=== PATIENT | male | born 1950 | race Two or more races ===

== ENCOUNTER 2024-10-13 01:27 | Emergency (ER) | payer MEDICARE, MEDICAID, SELFPAY ==
[2024-10-13 01:29] VITALS: BMI 24.7
[2024-10-13 01:45] VITALS: BP 175/81; PULSE 71; RESP 19; TEMP 36.4; O2SAT 95
--- NOTE | 2024-10-13 02:02 | PD.EDSKIN ---
ED Skin Abcess FB-RME/HPI General Chief complaint: Skin/Abscess/Foreign Body Stated complaint: RASH Time Seen by Provider: 10/13/24 01:51 Arrival date/time: 10/13/24 01:27 74M with history of HTN and DM Presents to ED with 2 days of itchy and painful rash on R chest and R hip areas. Patient denies new foods, meds, and hygiene products. Patient has had shingles before and states this looks and feels different. Patient was went to clinic yesterday and was given steroids w/o improvement. Patient notes his sugars have been all over the place. Limitations: no limitations Related Data Home Medications ?Medication ?Instructions ?Recorded ?Confirmed lovastatin 40 mg tablet 40 mg PO 1XD 01/25/23 05/13/24 hydrochlorothiazide 50 mg tablet 50 mg PO QAM 06/08/23 05/13/24 sitagliptin phosphate 100 mg 100 mg PO QDAY 02/06/24 05/13/24 tablet (Januvia) cetirizine 10 mg tablet 10 mg PO DAILY 02/27/24 05/13/24 lisinopril 40 mg tablet 40 mg PO DAILY 02/27/24 05/13/24 Previous Rx's ?Medication ?Instructions ?Recorded hydrocodone 5 mg-acetaminophen 325 1 tab PO BID PRN pain #7 tabs 02/05/24 mg tablet clotrimazole 1 % topical cream 1 applic topical BID 2 weeks #30 10/13/24 grams Allergies Allergy/AdvReac Type Severity Reaction Status Date / Time tramadol Allergy Severe Swelling Verified 10/13/24 01:32 of Lip/Tongue/Throat UNKNOWN HTN MED Allergy Severe Swelling Uncoded 10/13/24 01:32 of Lip/Tongue/Throat Review of Systems Review of Systems Systems Reviewed: All systems reviewed, normal except as documented Constitutional Constitutional: Reports system reviewed and no additional complaints, except as documented, Denies fever(s) and Denies headache(s) ENT Ears, Nose, Mouth, and Throat: Denies disequilibrium and Denies headache(s) Cardiovascular Cardiovascular: Reports system reviewed and no additional complaints, except as documented, Denies chest pain and Denies dyspnea Respiratory Respiratory: Reports system reviewed and no additional complaints, except as documented, Denies cough and Denies dyspnea Gastrointestinal Gastrointestinal: Reports system reviewed and no additional complaints, except as documented, Denies abdominal pain, Denies nausea and Denies vomiting Integumentary/Breasts Skin/Breast: Reports as per HPI, Reports pruritus, Reports rash and Reports skin pain Neurologic Neurologic: Reports system reviewed and no additional complaints, except as documented, Denies confusion, Denies disequilibrium and Denies headache(s) Psychiatric Psychiatric: Denies confusion Past Medical History Past Medical History NEUROLOGIC: Negative Neurological Disorders or Seizures CARDIAC: Positive Cardiac Disorders, Hypercholesterolemia and Hypertension; Negative Congestive Heart Failure, Edema, Cellulitis or Varicose Veins RESPIRATORY: Negative Chronic Obstructive Pulmonary Disease (COPD), Asthma, Tuberculosis or Sleep Apnea GASTROINTESTINAL: Positive Gastrointestinal Disorders, Diverticulitis and Gastroesophageal Reflux Disease; Negative Hepatitis or Colorectal Cancer GENITOURINARY: Positive Genitourinary Disorders, Kidney Stones, Neurogenic Bladder and Benign Prostatic Hyperplasia; Negative Renal Disease or Prostate Cancer REPRODUCTIVE: Negative Breast Cancer, Genital Herpes, Gonorrhea, Syphilis or Testicular Cancer MUSCULOSKELETAL: Positive Musculoskeletal Disorders, Arthritis, Gout and Carpal Tunnel Syndrome; Negative Bone Cancer ENDOCRINE: Positive Endocrine Disorders and Diabetes Mellitus Type 2; Negative Diabetes Mellitus Type 1 HEMATOLOGIC: Negative Blood Disorders, Anemia, Leukemia, Hemophilia, Thalassemia, Sickle Cell Disease or Clotting Problems PSYCHO/SOCIAL: Positive Anxiety OTHER HISTORY: Positive Hospitalization and Cancer (bladder , 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); Negative Autoimmune Disease, Down Syndrome, Developmental Delay, Shingles, Falls, Blood Transfusions, Anesthesia Reactions, Organ Transplant, Chemotherapy, Radiation Therapy, Hyperbaric Therapy, MRSA, VRSA, Vancomycin-Resistant Enterococci, Human Immunodeficiency Virus (HIV), Chicken Pox, Measles, Mumps, Rubella ([place] Measles), Pertussis, Clostridium Difficile, Breast Cancer, Colorectal Cancer, Lung Cancer, Prostate Cancer or Testicular Cancer Family History FAMILY HISTORY: Positive Family Cardiac Disorders, Family Cancer and Family Surgery; Negative Family Psychiatric Problems, Family Respiratory Disorders, Family Gastrointestinal Problems or Family Anesthesia Reaction Surgical History SURGICAL: Positive Abdominal Surgery and Transurethral Resection (BLADDER AND PROSTATE RESECTION); Negative Cardiac Surgery, Pacemaker, Endocrine Surgery, Vasectomy or Organ Transplant Social History SMOKING STATUS: Never smoker ED Exam General Limitations: Present no limitations General appearance: Present alert and in no apparent distress Head Head exam: Present atraumatic Eye Eye exam: Present normal appearance, PERRL and EOMI ENT ENT exam: Present normal exam, normal oropharynx and mucous membranes moist Neck Neck exam: Present normal inspection, full ROM and trachea midline Chest Chest inspection: Present normal inspection and symmetric chest wall rise Respiratory Respiratory exam: Present normal lung sounds bilaterally Cardiovascular Cardiovascular exam: Present regular rate, normal rhythm and normal heart sounds Abdominal Exam Abdominal exam: Present soft and normal bowel sounds Extremities Exam Extremities exam: Present normal inspection and full ROM Back Exam Back exam: Present normal inspection and full ROM Neurological Exam Neurological exam: Present alert, oriented X3 and CN II-XII intact Psychiatric Psychiatric exam: Present normal affect and normal mood Skin Skin exam: Present warm, dry, intact, normal color and rash Course Quality Measures none Orders Category Date Time Status Fluconazole [Diflucan] Med 10/13/24 01:53 Discontinued 150 mg PO X1 ONE Vital Signs Vital signs: Vital Signs Temperature 97.6 F 10/13/24 01:45 Pulse Rate 71 10/13/24 01:45 Respiratory Rate 19 10/13/24 01:45 Blood Pressure 175/81 H 10/13/24 01:45 Pulse Oximetry (%) 95 10/13/24 01:45 Oxygen Delivery Method Room Air 10/13/24 01:45 O2 at 95% on RA and WNLs Skin / Abscess / Foreign Body MDM Narrative MDM Narrative:: 74M with history of HTN and DM Presents to ED with 2 days of itchy and painful rash on R chest and R hip areas. Patient denies new foods, meds, and hygiene products. Patient has had shingles before and states this looks and feels different. Patient was went to clinic yesterday and was given steroids w/o improvement. Patient notes his sugars have been all over the place. Physical exam reveals red rash on R chest and R hip areas. Has mild central clearing and no blistering. Patient is afebrile, calm, and alert. Rash likely fungal in nature. Patient data External records reviewed:: [facility] previous records Clinical information provided by:: patient Social determinants that could affect healthcare access:: none Patient has the following chronic illnesses:: HTN and DM How is presenting disease/condition affected by chronic disease/condition?: exacerbated by Evaluation data The following diagnostics were reviewed and interpreted by me:: other (specify) (none) Lab and/or radiology exams considered but not ordered:: not ordered Interpretation Summary: n/a Medications / Prescriptions Medications or Prescriptions considered but not ordered:: ordered Medication administrations:: Medication Administration History Discontinued Medications Fluconazole (Fluconazole 150 Mg Tablet) 150 mg PO X1 ONE Stop: 10/13/24 01:54 above Consultations Consultation(s) initiated? (list below): No Diagnosis Skin/Abscess Differential Diagnosis: abscess of skin or subcutaneous tissue, viral exanthem, dermatophytosis, urticaria, herpes zoster, allergic reaction to drug, cellulitis, eczema, insect bites, impetigo, contact dermatitis and other (rash) Most likely diagnosis given after review of the tests above:: rash Admission Indicated Admission indicated?: not indicated Admission Request Was there a request for admission?: No Disposition Plan Disposition Plan: Discharge Discharge Attestation Discharge Attestation: The patient and all family members were given an opportunity to ask questions and understood the discharge instructions. Discharge instructions specifically effects, indications for sooner follow up or return to the emergency department, and the expected course of current diagnosis. Patient condition: Stable Discharge Plan Plan Patient Disposition: HOME (Self Care) Disposition Comment: Stable Prescriptions/Referrals Prescriptions/Med Rec: New clotrimazole 1 % cream 1 applic topical BID 14 Days Qty: 30 0RF Rx Instructions: use until symptoms resolve No Action Januvia 100 mg tablet 100 mg PO QDAY hydrochlorothiazide 50 mg tablet 50 mg PO QAM cetirizine 10 mg tablet 10 mg PO DAILY Patient Comments: TOME LUIGI TABLETA TODOS LOS D lisinopril 40 mg tablet 40 mg PO DAILY Patient Comments: TOME LUIGI TABLETA TODOS LOS D FOR 90 DAYS lovastatin 40 mg tablet 40 mg PO 1XD Patient Comments: TOME LUIGI TABLETA TODOS LOS D WITH THE EVENING MEAL FOR 90 DAYS hydrocodone-acetaminophen 5-325 mg tablet 1 tab PO BID PRN (Reason: pain) Qty: 7 0RF Hold Instructions: Resume on 02/28/24. Problem List Clinical Impression: Rash Patient/Caregiver Discharge Instructions Additional Instructions: Please follow-up with PCP within 24-48 hours and return immediately if symptoms worsen. If problem persists, see dermatology. Can take OTC antihistamine for itching. Print Language: Romanian Stand Alone Forms: Patient Portal Info Letter JENNIFER/KYLAH Supervising Physician JENNIFER/KYLAH Supervising Physician: Dr. Magdaleno
[2024-10-13] MEDS: FLUCONAZOLE 150 MG TABLET PO (02:11)
== END 2024-10-13 02:13 | disposition home or self-care (01) ==
LOC: SERX 02:17
PROVIDERS: Emergency Provider Emergency Medicine; PCP Physician Assistant Medical
DX: R21 Rash and other nonspecific skin eruption (principal)
CPT/HCPCS: 99282; A9270

== ENCOUNTER → 2024-11-14 | Outpatient (CLI) | payer MEDICARE, MEDICAID, SELFPAY ==
--- NOTE | 2024-11-14 11:13 | XR_ITS ---
Examination: AP right shoulder single view TECHNIQUE: Internal rotation AP right shoulder single view Exam date and time: November 14, 2024 1139 hours INDICATIONS: Patient fell one year ago with injury to the shoulder, shoulder pain. FINDINGS: Moderate osteopenia Moderate narrowing glenohumeral joint Mild osteoarthritis acromioclavicular joint No fracture or shoulder dislocation IMPRESSION: Moderate narrowing glenohumeral joint
== END | disposition home or self-care (01) ==
LOC: CDIM 11:03
PROVIDERS: PCP Family Medicine; Referring Provider Family Medicine; Visit Provider Family Medicine
DX: M25.811 Other specified joint disorders, right shoulder (principal)
CPT/HCPCS: 73020

== ENCOUNTER → 2024-11-26 | Outpatient (CLI) | payer MEDICARE, MEDICAID, SELFPAY ==
[2024-11-26 20:31] LABS: Prostate Specific Antigen < 0.00 ng/mL (0-4.00)
== END | disposition home or self-care (01) ==
LOC: COPL 07:49
PROVIDERS: PCP Physician Assistant Medical; Referring Provider Urology; Visit Provider Urology
DX: C61 Malignant neoplasm of prostate (principal)
CPT/HCPCS: 36415; 84153

== ENCOUNTER 2024-12-02 13:52 | Emergency (ER) | payer MEDICARE, MEDICAID, SELFPAY ==
[2024-12-02 13:53] VITALS: BMI 26.9
[2024-12-02 14:09] VITALS: BP 169/80; PULSE 87; RESP 18; TEMP 36.8; O2SAT 98
--- NOTE | 2024-12-02 14:23 | XR_ITS ---
Examination: Knee, left , 3 views Technique: Knee AP, lateral, oblique 3 views Date and time of exam: December 02, 2024 1428 hours INDICATIONS: Left knee pain beginning 8 days ago FINDINGS: Mild to moderate osteoarthritis medial patellofemoral joints No fracture or dislocation Moderate osteopenia Small knee effusion IMPRESSION: Mild to moderate osteoarthritis medial patellofemoral joints
--- NOTE | 2024-12-02 14:23 | PD.EDLOWEX ---
Lower Extremity Injury RME/HPI General Chief Complaint: Extremity Injury, Lower Stated Complaint: Left knee pain x 4 day Time Seen by Provider: 12/02/24 14:16 Arrival date/time: 12/02/24 13:52 74-year-old male reports with complaints of left knee pain x 2 weeks. Patient denies any injury or trauma to the knee swelling bruising or redness. Patient states that he was evaluated by his primary care provider as well as another emergency department both diagnosed with gout he has been treated with allopurinol and Febuxostat and he reports no improvement of pain. He denies numbness or tingling decreased range of motion or weakness of the knee Limitations: no limitations Related Data Home Medications ?Medication ?Instructions ?Recorded ?Confirmed lovastatin 40 mg tablet 40 mg PO 1XD 01/25/23 12/02/24 hydrochlorothiazide 50 mg tablet 50 mg PO QAM 06/08/23 12/02/24 sitagliptin phosphate 100 mg 100 mg PO QDAY 02/06/24 12/02/24 tablet (Januvia) cetirizine 10 mg tablet 10 mg PO DAILY 02/27/24 12/02/24 lisinopril 40 mg tablet 40 mg PO DAILY 02/27/24 12/02/24 Previous Rx's ?Medication ?Instructions ?Recorded hydrocodone 5 mg-acetaminophen 325 1 tab PO BID PRN pain #7 tabs 02/05/24 mg tablet diclofenac sodium 1 % gel topical 2 g topical QID #1 ea 12/02/24 kit Allergies Allergy/AdvReac Type Severity Reaction Status Date / Time tramadol Allergy Severe Swelling Verified 12/02/24 10:58 of Lip/Tongue/Throat UNKNOWN HTN MED Allergy Severe Swelling Uncoded 12/02/24 10:58 of Lip/Tongue/Throat Review of Systems Constitutional Constitutional: Denies chills and Denies fever(s) Musculoskeletal Musculoskeletal: Reports arthralgias, Denies deformity, Denies joint swelling, Denies numbness, Denies stiffness and Denies tingling Integumentary/Breasts Skin/Breast: Denies erythema, Denies rash, Denies unusual bruising and Denies wounds Neurologic Neurologic: Denies numbness and Denies tingling Past Medical History Past Medical History NEUROLOGIC: Negative Neurological Disorders or Seizures CARDIAC: Positive Cardiac Disorders, Hypercholesterolemia and Hypertension; Negative Congestive Heart Failure, Edema, Cellulitis or Varicose Veins RESPIRATORY: Negative Chronic Obstructive Pulmonary Disease (COPD), Asthma, Tuberculosis or Sleep Apnea GASTROINTESTINAL: Positive Gastrointestinal Disorders, Diverticulitis and Gastroesophageal Reflux Disease; Negative Hepatitis or Colorectal Cancer GENITOURINARY: Positive Genitourinary Disorders, Kidney Stones, Neurogenic Bladder and Benign Prostatic Hyperplasia; Negative Renal Disease or Prostate Cancer REPRODUCTIVE: Negative Breast Cancer, Genital Herpes, Gonorrhea, Syphilis or Testicular Cancer MUSCULOSKELETAL: Positive Musculoskeletal Disorders, Arthritis, Gout and Carpal Tunnel Syndrome; Negative Bone Cancer ENDOCRINE: Positive Endocrine Disorders and Diabetes Mellitus Type 2; Negative Diabetes Mellitus Type 1 HEMATOLOGIC: Negative Blood Disorders, Anemia, Leukemia, Hemophilia, Thalassemia, Sickle Cell Disease or Clotting Problems PSYCHO/SOCIAL: Positive Anxiety OTHER HISTORY: Positive Hospitalization and Cancer (bladder , 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); Negative Autoimmune Disease, Down Syndrome, Developmental Delay, Shingles, Falls, Blood Transfusions, Anesthesia Reactions, Organ Transplant, Chemotherapy, Radiation Therapy, Hyperbaric Therapy, MRSA, VRSA, Vancomycin-Resistant Enterococci, Human Immunodeficiency Virus (HIV), Chicken Pox, Measles, Mumps, Rubella ([place] Measles), Pertussis, Clostridium Difficile, Breast Cancer, Colorectal Cancer, Lung Cancer, Prostate Cancer or Testicular Cancer Family History FAMILY HISTORY: Positive Family Cardiac Disorders, Family Cancer and Family Surgery; Negative Family Psychiatric Problems, Family Respiratory Disorders, Family Gastrointestinal Problems or Family Anesthesia Reaction Surgical History SURGICAL: Positive Abdominal Surgery and Transurethral Resection (BLADDER AND PROSTATE RESECTION); Negative Cardiac Surgery, Pacemaker, Endocrine Surgery, Vasectomy or Organ Transplant Social History SMOKING STATUS: Never smoker ED Exam General Limitations: Present no limitations General appearance: Present alert and in no apparent distress Expanded Lower Extremity Exam Upper leg exam: Present normal inspection and full ROM; Absent tenderness or swelling Knee exam: Present normal inspection, full ROM and tenderness (medially extending to distal femur but no e/e/e or defomity note); Absent swelling, ecchymosis, deformity, erythema, pain with valgus, laxity with valgus, pain with varus or laxity with varus Lower leg exam: Present normal inspection and full ROM; Absent tenderness or swelling Neurological Exam Neurological exam: Present alert, oriented X3 and CN II-XII intact Psychiatric Psychiatric exam: Present normal affect and normal mood Skin Skin exam: Present warm, dry, intact and normal color Course Course Course Narrative: 74-year-old male reports with complaints of left knee pain for several weeks. Patient is x-ray indicative of osteoarthritis. Patient will be advised to discontinue the use of the allopurinol and other gout medicines as arthritis appears to be the cause of his pain he will be prescribed medications and referred to primary care provider. Patient is stable nontoxic-appearing with stable vital signs will be discharged Quality Measures none Orders Category Date Time Status XR knee LT 3V Stat Exams 12/02/24 14:23 Completed Vital Signs Vital signs: Vital Signs Temperature 98.3 F 12/02/24 14:09 Pulse Rate 87 12/02/24 14:09 Respiratory Rate 18 12/02/24 14:09 Blood Pressure 169/80 H 12/02/24 14:09 Pulse Oximetry (%) 98 12/02/24 14:09 Oxygen Delivery Method Room Air 12/02/24 14:09 Extremity Injury, Lower Patient data External records reviewed:: None Clinical information provided by:: patient Social determinants that could affect healthcare access:: none Patient has the following chronic illnesses:: none How is presenting disease/condition affected by chronic disease/condition?: no chronic disease Evaluation data The following diagnostics were reviewed and interpreted by me:: radiology exam(s) Lab and/or radiology exams considered but not ordered:: none Interpretation Summary: Arthritis Medications / Prescriptions Medications or Prescriptions considered but not ordered:: None Medication administrations:: None Consultations Consultation(s) initiated? (list below): No Diagnosis Most likely diagnosis given after review of the tests above:: Arthritis Admission Indicated Admission indicated?: indicated Admission Request Was there a request for admission?: No Disposition Plan Disposition Plan: Discharge Discharge Attestation Discharge Attestation: The patient and all family members were given an opportunity to ask questions and understood the discharge instructions. Discharge instructions specifically effects, indications for sooner follow up or return to the emergency department, and the expected course of current diagnosis. Patient condition: Stable Discharge Plan Plan Patient Disposition: HOME (Self Care) Prescriptions/Referrals Prescriptions/Med Rec: New diclofenac sodium 1 % kit 2 g topical QID Qty: 1 0RF Rx Instructions: apply to single knee No Action Januvia 100 mg tablet 100 mg PO QDAY hydrochlorothiazide 50 mg tablet 50 mg PO QAM cetirizine 10 mg tablet 10 mg PO DAILY Patient Comments: MIKAELA LUIGI TABLETA TONETO LOS D lisinopril 40 mg tablet 40 mg PO DAILY Patient Comments: TOME LUIGI TABLETA TODOS LOS D FOR 90 DAYS lovastatin 40 mg tablet 40 mg PO 1XD Patient Comments: MIKAELA MEYERS TABLETA TODOS LOS D WITH THE EVENING MEAL FOR 90 DAYS hydrocodone-acetaminophen 5-325 mg tablet 1 tab PO BID PRN (Reason: pain) Qty: 7 0RF Hold Instructions: Resume on 02/28/24. Referrals: Jack Aguilar PA-C [Primary Care Provider] - In 1 week Problem List Clinical Impression: Osteoarthritis Patient/Caregiver Discharge Instructions Discharge Activity: activity as tolerated Education Materials: Osteoarthritis Additional Instructions: 1. Stop taking the medication given to you for gout and start using the medications prescribed today follow-up with your primary care provider as needed Print Language: Mozambican Stand Alone Forms: Shelli Award Info., Patient Portal Info Letter
[2024-12-02] MEDS: ACETAMINOPHEN 500 MG TABLET 1000 MG PO (16:15)
== END 2024-12-02 16:20 | disposition home or self-care (01) ==
PROVIDERS: Emergency Provider Emergency Medicine; PCP Physician Assistant Medical
DX: M17.12 Unilateral primary osteoarthritis, left knee (principal); M10.9 Gout, unspecified
CPT/HCPCS: 73562; 99283; A9270

== ENCOUNTER → 2024-12-02 | Outpatient (BNVA) | payer MEDICARE, MEDICAID, SELFPAY | END | disposition home or self-care (01) | PROVIDERS: PCP Physician Assistant Medical; Referring Provider Physician Assistant Medical; Visit Provider Urology | DX: D09.0 Carcinoma in situ of bladder (principal); C61 Malignant neoplasm of prostate; E11.9 Type 2 diabetes mellitus without complications; Z79.4 Long term (current) use of insulin; I10 Essential (primary) hypertension; K21.9 Gastro-esophageal reflux disease without esophagitis; E78.00 Pure hypercholesterolemia, unspecified | CPT/HCPCS: 81003; 99212; G0463 ==

== ENCOUNTER → 2025-01-02 | Outpatient (CLI) | payer MEDICARE, MEDICAID, SELFPAY ==
[2025-01-02 09:30] LABS: Basophils % (Auto) 0 % (0-2.5); Eosinophils # (Auto) 0.3 Thou/mm3 (0.0-0.5); Eosinophils % (Auto) 4 % (0-10); Hematocrit 41.6 % (41.0-53.0); Hemoglobin 14.1 g/dL (13.5-16.0); Immature Granulocytes % (Auto) 0 % (0-0); Immature Granulocytes Auto 0.03 Thou/mm3 (0.00-0.00); Lymphocytes # (Auto) 1.9 Thou/mm3 (1.0-4.8); Lymphocytes % (Auto) 28 % (10-50); Mean Corpuscular HGB Conc 33.9 g/dl (31.0-37.0); Mean Corpuscular Hemoglobin 28.9 pg (25.0-35.0); Mean Corpuscular Volume 85 fL (80-100); Monocytes # (Auto) 0.6 Thou/mm3 (0.0-0.8); Monocytes % (Auto) 8 % (0-12); Neutrophils # (Auto) 4.1 Thou/mm3 (1.8-7.7); Neutrophils % (Auto) 59 % (37-80); Nucleated Red Blood Cell % 0 /100 WBC (0); Platelet Count 225 Thou/mm3 (140-440); RDW Standard Deviation 40.5 fL (35.1-43.9); Red Blood Count 4.88 Miln/mm3 (4.50-5.90); White Blood Count 6.9 Thou/mm3 (3.8-10.6)
[2025-01-02 09:51] LABS: Alanine Aminotransferase 12 U/L (10-49); Albumin, Serum 4.5 gm/dL (3.4-4.8); Albumin/Globulin Ratio 1.7 (1.2-2.2); Alkaline Phosphatase 111 U/L (46-116); Anion Gap 10 (7-16); Aspartate Amino Transferase 14 U/L (0-34); BUN/Creatinine Ratio 18 Ratio (12-20); Bilirubin,Total 0.5 mg/dL (0.3-1.2); Blood Urea Nitrogen 21 mg/dL (9-23); Carbon Dioxide 22.1 mMol/L (20.0-31.0); Chloride 112 mMol/L (98-107); Creatinine (Component) 1.2 mg/dL (0.6-1.3); Globulin 2.7 gm/dL (2.3-3.5); Glucose 140 mg/dL (74-106); Osmolality,Calculated 291 (275-295); Potassium 4.5 mMol/L (3.4-5.1); Sodium 144 mMol/L (136-145); Total Protein 7.2 gm/dL (5.7-8.2); eGFR > 60 See Note
== END | disposition home or self-care (01) ==
LOC: CDIM 08:59 → COPL 09:07
PROVIDERS: PCP Urology; Referring Provider Urology; Visit Provider Urology
DX: Z01.89 Encounter for other specified special examinations (principal)
CPT/HCPCS: 36415; 80053; 85025

== ENCOUNTER → 2025-01-16 | Outpatient (CLI) | payer MEDICARE, MEDICAID, SELFPAY ==
--- NOTE | 2025-01-16 11:43 | XR_ITS ---
Examination: CT abdomen with intravenous contrast CT pelvis with intravenous contrast 2-D coronal reconstructions 2-D sagittal reconstructions Date and time of exam:January 16, 2025 1220 hrs. Indications: Diagnosis malignant neoplasm trigone of the bladder 3 months ago restaging. CTDI: vol (mGy) 13.7 DLP: (mGycm) 848 Technique: Multiple axial sections of the abdomen and pelvis have been obtained. 64 slice high-resolution scanner used. 3 mm axial sections have been obtained, post intravenous injection 60 cc [id number] 2-D sagittal, coronal reconstructions obtained. Low dose protocols were performed. One or more of the following dose reduction techniques were used; automated exposure control, adjustment of the mA and/or KV according to patient size, use of iterative reconstruction technique. Findings: Mild enlargement cardiac contour No focal liver or splenic lesions Contracted gallbladder with gallstones No pancreatic mass Minimal nodular thickening left adrenal gland Mild bilateral renal parenchymal scar formation, no hydronephrosis or ureteral calculi Diffuse colonic diverticulosis Normal appendix Right urostomy No bowel obstruction No diverticulitis Absent urinary bladder Fat-containing inguinal hernias Prominent osteopenia No abdominal or pelvic lymphadenopathy Impression: No interval metastatic disease
== END | disposition home or self-care (01) ==
LOC: SCAT 11:22
PROVIDERS: PCP Family Medicine; Referring Provider Urology; Visit Provider Urology
DX: C67.0 Malignant neoplasm of trigone of bladder (principal)
CPT/HCPCS: 74177; A4649; Q9967

== ENCOUNTER → 2025-04-02 | Outpatient (CLI) | payer MEDICAID, SELFPAY ==
--- NOTE | 2025-04-02 09:01 | XR_ITS ---
Examination: Shoulder,right, 3 views Technique: Shoulder AP internal rotation, AP external rotation, Y view shoulder, 3 views Exam date and time :April 02, 2025 0922 hours INDICATIONS: Patient fell one year ago with injury to the right shoulder, persistent right shoulder pain. FINDINGS: Prominent osteopenia. Moderate narrowing glenohumeral joint No shoulder fracture or dislocation IMPRESSION: No shoulder fracture or dislocation
[2025-04-02 10:20] LABS: Basophils % (Auto) 1 % (0-2.5); Eosinophils # (Auto) 0.2 Thou/mm3 (0.0-0.5); Eosinophils % (Auto) 3 % (0-10); Hematocrit 45.6 % (41.0-53.0); Hemoglobin 15.3 g/dL (13.5-16.0); Immature Granulocytes % (Auto) 1 % (0-0); Immature Granulocytes Auto 0.03 Thou/mm3 (0.00-0.00); Lymphocytes # (Auto) 1.7 Thou/mm3 (1.0-4.8); Lymphocytes % (Auto) 26 % (10-50); Mean Corpuscular HGB Conc 33.6 g/dl (31.0-37.0); Mean Corpuscular Hemoglobin 29.5 pg (25.0-35.0); Mean Corpuscular Volume 88 fL (80-100); Monocytes # (Auto) 0.6 Thou/mm3 (0.0-0.8); Monocytes % (Auto) 9 % (0-12); Neutrophils % (Auto) 61 % (37-80); Nucleated Red Blood Cell % 0 /100 WBC (0); Platelet Count 261 Thou/mm3 (140-440); RDW Standard Deviation 41.3 fL (35.1-43.9); Red Blood Count 5.19 Miln/mm3 (4.50-5.90); White Blood Count 6.6 Thou/mm3 (3.8-10.6)
[2025-04-02 10:32] LABS: Glucose Estimated Average 209 mg/dL (80-131); Hemoglobin A1C 8.9 % Hgb (4.8-6.0)
[2025-04-02 10:36] LABS: Creatinine MALB Rnd Ur 80 mg/dL (30-125); Microalbumin Creat Ratio 140 mg/gCrea (<30); Microalbumin, Random Urine 112 mg/L (0-300)
[2025-04-02 10:39] LABS: Alanine Aminotransferase 11 U/L (10-49); Albumin, Serum 4.8 gm/dL (3.4-4.8); Albumin/Globulin Ratio 1.5 (1.2-2.2); Alkaline Phosphatase 108 U/L (46-116); Anion Gap 11 (7-16); Aspartate Amino Transferase 14 U/L (0-34); BUN/Creatinine Ratio 15 Ratio (12-20); Bilirubin,Total 0.6 mg/dL (0.3-1.2); Blood Urea Nitrogen 18 mg/dL (9-23); Calcium 9.5 mg/dL (8.3-10.6); Calcium (Corrected) 9.5 mg/dL (8.5-10.1); Cardiac Risk Estimate 4.1 RATIO (4.0-6.7); Chloride 108 mMol/L (98-107); Cholesterol 148 mg/dL (132-200); Creatinine (Component) 1.2 mg/dL (0.6-1.3); Globulin 3.2 gm/dL (2.3-3.5); Glucose 150 mg/dL (74-106); HDL Cholesterol 36 mg/dL (40-60); LDL Cholesterol,Calculated 71 mg/dL (0-130); Osmolality,Calculated 289 (275-295); Potassium 4.7 mMol/L (3.4-5.1); Sodium 143 mMol/L (136-145); Thyroid Stimulating Hormone 1.55 uIU/mL (0.55-4.78); Triglycerides 207 mg/dL (30-150); eGFR > 60 See Note
== END | disposition home or self-care (01) ==
LOC: CDIM 08:42 → COPL 09:25
PROVIDERS: Referring Provider Student in an Organized Health Care Education/Training Program; Visit Provider Student in an Organized Health Care Education/Training Program
DX: M25.511 Pain in right shoulder (principal)
CPT/HCPCS: 36415; 73030; 80053; 80061; 82043; 82570; 83036; 84443; 85025

== ENCOUNTER 2025-04-05 00:57 | Emergency (ER) | payer MEDICARE, MEDICAID, SELFPAY ==
--- NOTE | 2025-04-05 01:20 | EKG_ITS ---
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1950 Requested By: ED Temporary Provider Order Number: [id number] Reading MD: ED Temporary Provider Measurements Intervals [place] Rate: 58 P: 25 [place]: 114 QRS: 18 QRSD: 102 T: 194 QT: 459 QTc: 452 Interpretive Statements SINUS BRADYCARDIA WITH SHORT [place] INTERVAL ST DEVIATION AND MARKED T-WAVE ABNORMALITY, CONSIDER ANTEROLATERAL ISCHEMIA [-0.5+ mV T-WAVE IN I/aVL/V3-V6] ST DEVIATION AND MODERATE T-WAVE ABNORMALITY, CONSIDER INFERIOR ISCHEMIA [-0.1+ mV T-WAVE IN II/aVF] Compared to ECG 09/05/2023 18:35:42 Short [place] interval now present Sinus rhythm no longer present T-wave abnormality still present Possible ischemia still present /store/S0/[id number]
[2025-04-05 01:31] VITALS: BP 184/82; PULSE 60; RESP 19; TEMP 36.6; O2SAT 96
--- NOTE | 2025-04-05 02:07 | PD.EDABDPN ---
ED Abdominal Pain RME/HPI General Chief Complaint: Abdominal Pain Stated complaint: EPIGASTRIC PAIN Time seen by provider: 04/05/25 02:08 Arrival date/time: 04/05/25 00:57 RME / HPI RME / HPI narrative: Dr. Bridges?s Main ED Evaluation: 74yo male with a history of HTN, HLD, DM, bladder CA s/p cystectomy (1.5 year ago per pt, no chemotherapy or radiation) presents to the ED for a chief complaint of lower abdominal pain x 2000. No radiation or migration. Patient denies any N/V/D, fever, chills, chest pain, shortness of breath or any other associated symptoms. Patient denies any history of similar symptoms. Related Data Home Medications ?Medication ?Instructions ?Recorded ?Confirmed lovastatin 40 mg tablet 40 mg PO 1XD 01/25/23 12/02/24 hydrochlorothiazide 50 mg tablet 50 mg PO QAM 06/08/23 12/02/24 sitagliptin phosphate 100 mg 100 mg PO QDAY 02/06/24 12/02/24 tablet (Januvia) cetirizine 10 mg tablet 10 mg PO DAILY 02/27/24 12/02/24 lisinopril 40 mg tablet 40 mg PO DAILY 02/27/24 12/02/24 Previous Rx's ?Medication ?Instructions ?Recorded hydrocodone 5 mg-acetaminophen 325 1 tab PO BID PRN pain #7 tabs 02/05/24 mg tablet Held on 02/27/24. Instructions: Resume on 02/28/24. diclofenac sodium 1 % gel topical 2 g topical QID #1 ea 12/02/24 kit Allergies Allergy/AdvReac Type Severity Reaction Status Date / Time tramadol Allergy Severe Swelling Verified 04/05/25 01:00 of Lip/Tongue/Throat UNKNOWN HTN MED Allergy Severe Swelling Uncoded 12/02/24 10:58 of Lip/Tongue/Throat Review of Systems Review of Systems Systems Reviewed: All systems reviewed, normal except as documented Past Medical History Past Medical History NEUROLOGIC: Negative Neurological Disorders or Seizures CARDIAC: Positive Cardiac Disorders, Hypercholesterolemia and Hypertension; Negative Congestive Heart Failure, Edema, Cellulitis or Varicose Veins RESPIRATORY: Negative Chronic Obstructive Pulmonary Disease (COPD), Asthma, Tuberculosis or Sleep Apnea GASTROINTESTINAL: Positive Gastrointestinal Disorders, Diverticulitis and Gastroesophageal Reflux Disease; Negative Hepatitis or Colorectal Cancer GENITOURINARY: Positive Genitourinary Disorders, Kidney Stones, Neurogenic Bladder and Benign Prostatic Hyperplasia; Negative Renal Disease or Prostate Cancer REPRODUCTIVE: Negative Breast Cancer, Genital Herpes, Gonorrhea, Syphilis or Testicular Cancer MUSCULOSKELETAL: Positive Musculoskeletal Disorders, Arthritis, Gout and Carpal Tunnel Syndrome; Negative Bone Cancer ENDOCRINE: Positive Endocrine Disorders and Diabetes Mellitus Type 2; Negative Diabetes Mellitus Type 1 HEMATOLOGIC: Negative Blood Disorders, Anemia, Leukemia, Hemophilia, Thalassemia, Sickle Cell Disease or Clotting Problems PSYCHO/SOCIAL: Positive Anxiety OTHER HISTORY: Positive Hospitalization and Cancer (bladder , 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); Negative Autoimmune Disease, Down Syndrome, Developmental Delay, Shingles, Falls, Blood Transfusions, Anesthesia Reactions, Organ Transplant, Chemotherapy, Radiation Therapy, Hyperbaric Therapy, MRSA, VRSA, Vancomycin-Resistant Enterococci, Human Immunodeficiency Virus (HIV), Chicken Pox, Measles, Mumps, Rubella (Micronesian Measles), Pertussis, Clostridium Difficile, Breast Cancer, Colorectal Cancer, Lung Cancer, Prostate Cancer or Testicular Cancer Family History FAMILY HISTORY: Positive Family Cardiac Disorders, Family Cancer and Family Surgery; Negative Family Psychiatric Problems, Family Respiratory Disorders, Family Gastrointestinal Problems or Family Anesthesia Reaction Surgical History SURGICAL: Positive Abdominal Surgery and Transurethral Resection (BLADDER AND PROSTATE RESECTION); Negative Cardiac Surgery, Pacemaker, Endocrine Surgery, Vasectomy or Organ Transplant Social History SMOKING STATUS: Never smoker ED Exam Narrative Physical exam: GENERAL APPEARANCE: alert and oriented x 4, well-developed, well-nourished, no acute distress VITALS: All vitals were reviewed and the pulse ox is 96% on room air, which is normal according to my interpretation. HEENT: Normocephalic, atraumatic; pupils equal, round, reactive to light; EOMI; mucous membranes pink, moist; oropharynx clear NECK: Supple LUNGS: CTABL; no wheezes, no rales, no rhonchi HEART: Regular rate, regular rhythm; normal S1, S2; no murmurs ABDOMEN: non distended; normal BS; soft, no tenderness, no guarding, no rebound; RLQ urostomy bag in place BACK: no CVA tenderness EXTREMITIES: atraumatic; no edema NEUROLOGIC: awake; alert and oriented x4; cranial nerves II-XII grossly intact; no focal sensory or motor deficits PSYCHIATRIC: appropriate mood and affect SKIN: warm, dry, normal color; no rashes; well-healed anterior abdominal wall surgical scar Course Quality Measures none Orders Category Date Time Status CT Screening NOW Care 04/05/25 02:13 Active Software Packager STAT Care 04/05/25 02:09 Active Continuous Pulse Oximetry STAT Care 04/05/25 02:09 Completed EKG (ED ONLY) *Do not use* NOW Care 04/05/25 01:20 Completed Insert IV STAT Care 04/05/25 02:08 Active NPO STAT Care 04/05/25 02:[address] abdomen pelvis w con Stat Exams 04/05/25 02:12 Completed EKG (ED Only) Stat Exams 04/05/25 01:20 Draft US gall bladder Stat Exams 04/05/25 05:28 Completed XR chest 1V portable Stat Exams 04/05/25 02:12 Completed B-Type Natriuretic Peptide Stat Lab 04/05/25 02:48 Completed Blood Culture (Lab) Stat Lab 04/05/25 06:29 Received CBC Stat Lab 04/05/25 02:48 Completed Comprehensive Metabolic Panel Stat Lab 04/05/25 02:48 Completed Lipase Stat Lab 04/05/25 02:48 Completed Magnesium Stat Lab 04/05/25 02:48 Completed Partial Thromboplastin Time Stat Lab 04/05/25 02:48 Completed Prothrombin Time with INR Stat Lab 04/05/25 02:48 Completed Troponin I Stat Lab 04/05/25 02:48 Completed Troponin I Stat Lab 04/05/25 08:18 Completed Urinalysis Stat Lab 04/05/25 02:54 Completed HYDROmorphone INJ [Dilaudid Inj] Med 04/05/25 02:46 Discontinued 0.5 mg IVP X1 ONE Ondansetron Inj [Zofran Inj] Med 04/05/25 02:46 Discontinued 4 mg IV X1 ONE Sodium Chloride 0.9% 1000 ml [Ns] 1,000 ml Med 04/05/25 02:08 Discontinued IV 999 mls/hr cefTRIAXone/D5w 1gm IV premix [Rocephin/D5w 1gm IV Med 04/05/25 05:29 Discontinued premix] 1 gm in 50 ml IV X1 Vital Signs Vital signs: Vital Signs Temperature 97.9 F 04/05/25 01:31 Pulse Rate 60 04/05/25 01:31 Respiratory Rate 19 04/05/25 01:31 Blood Pressure 184/82 H 04/05/25 01:31 Pulse Oximetry (%) 96 04/05/25 01:31 Oxygen Delivery Method Room Air 04/05/25 01:31 Abdominal Pain MDM MDM Narrative MDM Narrative:: Scribe Attestation: 04/05/25 Nadia Ang am scribing for and in the presence of Dr. Bridges. Patient data External records reviewed:: [facility] previous records (Per chart review, patient has no relevant previous ED visits or admissions to this facility.) Clinical information provided by:: patient Social determinants that could affect healthcare access:: none Patient has the following chronic illnesses:: HTN, HLD, DM How is presenting disease/condition affected by chronic disease/condition?: uneffected by Evaluation data The following diagnostics were reviewed and interpreted by me:: lab results, radiology exam(s) and EKG tracing(s) Lab and/or radiology exams considered but not ordered:: none Interpretation Summary: CBC is normal, PT and INR are normal, PTT is normal, Glucose is 340, Troponin is normal, BNP is 129, Lipase is normal, UA is positive for UTI, according to my interpretation. CXR is rotated, but shows normal cardiac silhouette, normal sharp diaphragmatic edge, no infiltrates, normal costophrenic angles, according to my interpretation. Initial EKG done at 0135, sinus bradycardia, rate of 58, normal axis, no ectopy, deep T wave inversions in V2-V6, lead I, lead II, avL, and avF, high grade LAD, according to my interpretation. Repeat EKG done at 0204, NSR, rate of 64, normal axis, no ectopy, T wave inversions in V2-V6, lead I, lead II, lead III, and avF, high grade LAD, worsened compared to EKG done on 09/05/23, according to my interpretation. Telerad Preliminary Report Draft Patient: DEENA ESTRADA. Record#: [id number] Birthdate: 1950 Age/Sex: 74 / M Location: [facility] Attending Dr: Ordering Physician: Date of Service: Procedure(s): Accession Number(s): cc: ~ CT scan of the abdomen and pelvis with intravenous contrast (axial sections with sagittal and coronal reformats): April 05, 2025 at 0404 hours Clinical History: Lower abdominal pain. Comparison: No prior study is available for comparison. Findings: Bibasilar streaky atelectasis is present. There is thickening of the wall of the distal esophagus. There are multiple calcified calculi in the gallbladder, with borderline wall thickening and pericholecystic fluid. There are bilateral mild hydronephrosis (left greater than right). Nonspecific perinephric fat stranding is noted bilaterally. There is mild wall thickening of the left ureter with surrounding fat stranding The liver, pancreas, spleen and adrenals are unremarkable. No evidence of bowel obstruction. The appendix is within normal limits (images 72-80). There are multiple colonic diverticula without evidence of diverticulitis. There is no mesenteric or retroperitoneal adenopathy. The urinary bladder is surgically absent. 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 There are small fat-containing bilateral inguinal hernias. There is no free fluid or free air. The aorta and its branches demonstrate atheromatous calcification without evidence of aneurysm. Degenerative changes are identified in the spine. There is retrolisthesis of L5 on S1. Impression: 1. Findings suggestive of acute cholecystitis. Recommend further evaluation with sonography, if clinically indicated. 2. Status post cystectomy with ileal conduit and ileostomy in the right lower quadrant. 3. Bilateral mild hydroureteronephrosis (left greater than right ) with left ureteritis. Recommend clinical and laboratory correlation. 4. Other findings as described above. Discussion Details: Results verbally communicated to : Dr. Bridges at 05:24 AM 04/05/2025 Report Electronically Signed By: Amrit Chavis 04/05/2025 5:32:12 AM Medications / Prescriptions Medications or Prescriptions considered but not ordered:: none Medication administrations:: Medication Administration History Discontinued Medications Hydromorphone HCl (Hydromorphone Inj 2 Mg/Ml Vial) 0.5 mg IVP X1 ONE Stop: 04/05/25 02:47 Last Admin: 04/05/25 03:07 Dose: 0.5 mg Documented By: SERVANDO Sodium Chloride (Ns) 1,000 mls @ 999 mls/hr IV .Q1H1M ONE Stop: 04/05/25 03:08 Last Infusion: 04/05/25 04:02 Dose: Infused Documented By: Admin: 04/05/25 02:51 Dose: 999 mls/hr Documented By: SERVANDO Ceftriaxone Sodium/Dextrose (Rocephin/D5w 1gm Iv Premix) 1 gm in 50 mls @ 100 mls/hr IV X1 ONE Stop: 04/05/25 05:58 Last Infusion: 04/05/25 07:20 Dose: Infused Documented By: Admin: 04/05/25 06:42 Dose: 100 mls/hr Documented By: SERVANDO Ondansetron HCl (Ondansetron Inj 2 Mg/Ml Inj 2 Ml) 4 mg IV X1 ONE; Protocol Stop: 04/05/25 02:47 Last Admin: 04/05/25 03:07 Dose: 4 mg Documented By: SERVANDO see above Consultations Consultation(s) initiated? (list below): No Diagnosis Differential diagnosis abdominal pain: acute appendicitis, diverticulitis, small bowel obstruction and other (intra-abdominal abscess) Most likely diagnosis given after review of the tests above:: final dx pending at signout Admission Indicated Admission indicated?: not indicated Admission Request Was there a request for admission?: No Disposition Plan Disposition Plan: other (specify) (Signed out to Dr. Rodriguez at 0600 pending US gallbladder.) Discharge Plan Plan Patient Disposition: HOME (Self Care) Prescriptions/Referrals Prescriptions/Med Rec: No Action Januvia 100 mg tablet 100 mg PO QDAY hydrochlorothiazide 50 mg tablet 50 mg PO QAM cetirizine 10 mg tablet 10 mg PO DAILY Patient Comments: TOME LUIGI TABLETA TODOS LOS D lisinopril 40 mg tablet 40 mg PO DAILY Patient Comments: TOME LUIGI TABLETA TODOS LOS D FOR 90 DAYS diclofenac sodium 1 % kit 2 g topical QID Qty: 1 0RF Rx Instructions: apply to single knee lovastatin 40 mg tablet 40 mg PO 1XD Patient Comments: TOME LUIGI TABLETA TODOS LOS D WITH THE EVENING MEAL FOR 90 DAYS hydrocodone-acetaminophen 5-325 mg tablet 1 tab PO BID PRN (Reason: pain) Qty: 7 0RF Problem List Clinical Impression: Gastritis, Cholelithiasis Patient/Caregiver Discharge Instructions Education Materials: What Are Gallstones, ED Gastritis (Adult) Additional Instructions: Follow-up with your primary care doctor in 2 to 3 days for recheck. You can return to the emergency department sooner symptoms worsen or if you notice any new, concerning issues. Print Language: Hungarian Stand Alone Forms: Shelli Award Info., Patient Portal Info Letter
--- NOTE | 2025-04-05 02:12 | XR_ITS ---
Examination: AP chest single view TECHNIQUE: AP portable upright chest single view Exam date and time: April 05, 2025, 0245 hours INDICATIONS: Epigastric pain beginning last night. FINDINGS: Normal heart size. Lungs are clear. Osseous structures are intact. IMPRESSION: No active disease.
--- NOTE | 2025-04-05 02:12 | XR_ITS ---
Examination: CT abdomen with intravenous contrast CT pelvis with intravenous contrast 2-D coronal reconstructions 2-D sagittal reconstructions Date and time of exam:April 05, 2025, 0404 hours Comparison January 16, 2025 INDICATIONS: Diagnosis malignant neoplasm bladder, abdominal pain this week. CTDI: vol (mGy) 9.47 DLP: (mGycm) 541 Technique: Multiple axial sections of the abdomen and pelvis have been obtained. 64 slice high-resolution scanner used. 3 mm axial sections have been obtained, post intravenous injection 60 cc Isovue 370 2-D sagittal, coronal reconstructions obtained. Low dose protocols were performed. One or more of the following dose reduction techniques were used; automated exposure control, adjustment of the mA and/or KV according to patient size, use of iterative reconstruction technique. Findings: Fatty infiltration throughout the liver Gallstones Gallbladder wall is thickened Spleen not enlarged No pancreatic or adrenal mass Bilateral mild hydronephrosis with urostomy diversion No bowel obstruction Colonic diverticulosis, no diverticulitis Absent urinary bladder Fat-containing inguinal hernias Advanced disc narrowing L5-S1 IMPRESSION: Recommend hepatobiliary sonography to confirm acute calculus cholecystitis
[2025-04-05 02:21] VITALS: PULSE 60
[2025-04-05] MEDS: SODIUM CHLORIDE 0.9% 1000 ML 1,000 ML 999 ML IV (02:51)
[2025-04-05] MEDS: HYDROmorphone INJ 2 MG/ML VIAL 0.5 MG IVP (03:07)
[2025-04-05] MEDS: ONDANSETRON INJ 2 MG/ML INJ 2 ML 4 MG IV (03:07)
[2025-04-05 03:17] LABS: Collection Type, Urine Pedi-Bag; Squamous Epithelial Cell,Urine 0 /hpf (0-5)
[2025-04-05 03:19] LABS: Basophils % (Auto) 0 % (0-2.5); Eosinophils # (Auto) 0.2 Thou/mm3 (0.0-0.5); Eosinophils % (Auto) 2 % (0-10); Hematocrit 41.4 % (41.0-53.0); Hemoglobin 14.7 g/dL (13.5-16.0); Immature Granulocytes % (Auto) 1 % (0-0); Immature Granulocytes Auto 0.04 Thou/mm3 (0.00-0.00); Lymphocytes # (Auto) 1.4 Thou/mm3 (1.0-4.8); Lymphocytes % (Auto) 18 % (10-50); Mean Corpuscular HGB Conc 35.5 g/dl (31.0-37.0); Mean Corpuscular Hemoglobin 29.5 pg (25.0-35.0); Mean Corpuscular Volume 83 fL (80-100); Monocytes # (Auto) 0.6 Thou/mm3 (0.0-0.8); Monocytes % (Auto) 8 % (0-12); Neutrophils # (Auto) 5.3 Thou/mm3 (1.8-7.7); Neutrophils % (Auto) 72 % (37-80); Nucleated Red Blood Cell % 0 /100 WBC (0); Platelet Count 225 Thou/mm3 (140-440); RDW Standard Deviation 38.7 fL (35.1-43.9); Red Blood Count 4.99 Miln/mm3 (4.50-5.90); White Blood Count 7.5 Thou/mm3 (3.8-10.6)
[2025-04-05 03:28] LABS: Bilirubin,Urine Negative (Negative); Blood,Urine 2+ (Negative); Clarity,Urine Clear (Clear/Hazy); Color,Urine Lt-Yellow (Lt Yel-Yel); Glucose, Urine 4+ (Negative); Ketones,Urine Negative (Negative); Leukocyte Esterase,Urine Positive (Negative); Nitrite,Urine Negative (Negative); PH,Urine 6.5 (5.0-7.0); Protein,Urine 1+ (Neg - Trace); Specific Gravity,Urine 1.015 (1.001-1.035); Urobilinogen,Urine Negative mg/dL (0.0-1.0)
[2025-04-05 03:37] LABS: Partial Thromboplastin Time 29.1 Seconds (22.0-36.0); Prothrombin Time 11.4 Seconds (9.0-12.2)
[2025-04-05 03:39] LABS: B-Type Natriuretic Peptide 129 pg/mL (0-100)
[2025-04-05 03:40] LABS: Albumin, Serum 4.6 gm/dL (3.4-4.8); Albumin/Globulin Ratio 1.5 (1.2-2.2); Alkaline Phosphatase 106 U/L (46-116); Anion Gap 10 (7-16); Aspartate Amino Transferase 11 U/L (0-34); BUN/Creatinine Ratio 14 Ratio (12-20); Bilirubin,Total 0.4 mg/dL (0.3-1.2); Blood Urea Nitrogen 19 mg/dL (9-23); Carbon Dioxide 27.3 mMol/L (20.0-31.0); Chloride 103 mMol/L (98-107); Creatinine (Component) 1.4 mg/dL (0.6-1.3); Glucose 340 mg/dL (74-106); Lipase 39 U/L (12-53); Magnesium 1.8 mg/dL (1.6-2.6); Osmolality,Calculated 294 (275-295); Potassium 4.1 mMol/L (3.4-5.1); Sodium 140 mMol/L (136-145); Total Protein 7.6 gm/dL (5.7-8.2); Troponin I < 0.020 ng/mL (0.0-0.045); eGFR 53 See Note
[2025-04-05 03:49] LABS: RBC,Urine 21 /hpf (0-3)
[2025-04-05 03:50] LABS: WBC,Urine 15 /hpf (0-5)
[2025-04-05 03:50] LABS: Alanine Aminotransferase 10 U/L (10-49)
[2025-04-05 03:54] LABS: Bacteria,Urine 4+
--- NOTE | 2025-04-05 05:28 | XR_ITS ---
Examination: Abdomen sonogram, Limited Date and time of exam: April 05, 2025 at 0800 hrs. Indications: Onset abdominal pain today Technique: Real-time white scale transabdominal sonographic images of the upper abdomen obtained. Findings: Cholelithiasis Gallbladder wall is thickened 1.2 cm Common bile duct normal 0.5 cm Pancreatic head 3.3 cm Liver 14.6 cm fatty infiltration. Normal hepatopedal portal venous flow. Patent IVC Impression: Acute calculus cholecystitis
--- NOTE | 2025-04-05 05:32 | PRELIM_ITS ---
CT scan of the abdomen and pelvis with intravenous contrast (axial sections with sagittal and coronal reformats): April 05, 2025 at 0404 hours Clinical History: Lower abdominal pain. Comparison: No prior study is available for comparison. Findings: Bibasilar streaky atelectasis is present. There is thickening of the wall of the distal esophagus. There are multiple calcified calculi in the gallbladder, with borderline wall thickening and pericholecystic fluid. There are bilateral mild hydronephrosis (left greater than right). Nonspecific perinephric fat stranding is noted bilaterally. There is mild wall thickening of the left ureter with surrounding fat stranding The liver, pancreas, spleen and adrenals are unremarkable. No evidence of bowel obstruction. The appendix is within normal limits (images 72-80). There are multiple colonic diverticula without evidence of diverticulitis. There is no mesenteric or retroperitoneal adenopathy. The urinary bladder is surgically absent. 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 There are small fat- containing bilateral inguinal hernias. There is no free fluid or free air. The aorta and its branches demonstrate atheromatous calcification without evidence of aneurysm. Degenerative changes are identified in the spine. There is retrolisthesis of L5 on S1. Impression: 1. Findings suggestive of acute cholecystitis. Recommend further evaluation with sonography, if clinically indicated. 2. Status post cystectomy with ileal conduit and ileostomy in the right lower quadrant. 3. Bilateral mild hydroureteronephrosis (left greater than right ) with left ureteritis. Recommend clinical and laboratory correlation. 4. Other findings as described above. Discussion Details: Results verbally communicated to : Dr. Bridges at 05:24 AM 04/05/2025 Report Electronically Signed By: Amrit Chavis 04/05/2025 5:32:12 AM [EST]
--- NOTE | 2025-04-05 06:08 | PD.EDADDENDU ---
Emergency Room Addendum Addendum Narrative: 0600: Care assumed from Dr. Bridges (emergency physician). Past medical, surgical, social and family history reviewed. Vitals and home medications reviewed. Results and treatment plan discussed. They will assume the care of the patient at this time and will follow the patient, pending US. The following addendum documentation note is intended to reflect any pending information, findings, or radiology results not included in the patient?s initial chart by the previous shift scribe. 0750: Pending US with unremarkable labs, I ordered second Troponin I. RADIOLOGY Chest X-Ray Patient: DEENA ESTRADA. Record#: [id number] Birthdate: 1950 Age/Sex: 74 / M Location: [facility] Attending Dr: Ordering Physician: Guru Bridges MD Date of Service: 04/05/25 Procedure(s): XR chest 1V portable Accession Number(s): [id number] cc: Ryan Gilman MD; Edmond Harris MD; Guru Bridges MD~ Examination: AP chest single view TECHNIQUE: AP portable upright chest single view Exam date and time: April 05, 2025, 0245 hours INDICATIONS: Epigastric pain beginning last night. FINDINGS: Normal heart size. Lungs are clear. Osseous structures are intact. IMPRESSION: No active disease. Dictated By: Ryan Gilman MD Signed By: <Electronically signed by Ryan Gilman MD in OV> 04/05/25 0719 Gallbladder US Patient: DEENA ESTRADA Med. Record#: [id number] Birthdate: 1950 Age/Sex: 74 / M Location: [facility] Attending Dr: Ordering Physician: Guru Bridges MD Date of Service: 04/05/25 Procedure(s): US gall bladder Accession Number(s): [id number] cc: Ryan Gilman MD; Edmond Harris MD; Guru Bridges MD~ Examination: Abdomen sonogram, Limited Date and time of exam: April 05, 2025 at 0800 hrs. Indications: Onset abdominal pain today Technique: Real-time white scale transabdominal sonographic images of the upper abdomen obtained. Findings: Cholelithiasis Gallbladder wall is thickened 1.2 cm Common bile duct normal 0.5 cm Pancreatic head 3.3 cm Liver 14.6 cm fatty infiltration. Normal hepatopedal portal venous flow. Patent IVC Impression: Acute calculus cholecystitis Dictated By: Ryan Gilman MD Signed By: <Electronically signed by Ryan Gilman MD in OV> 04/05/25 0922 LABS Repeat Troponin I is < 0.020 and within normal limits, per my interpretation. 0914: I reviewed several of patient's EKG's as far back as 2020. T-wave inversions are unchanged since then, with some deep, some less so, but all related to its voltage. Same for all previous EKG's. 0945: Patient is pain free. No Calix's Sign. Patient does not want surgery. States each time he has to undergo surgery, Dr. Hernandez needs to clear his EKG. Patient prefers to F/U with Dr. Harris to discuss other treatment options. Patient is also aware of abnormal EKG and prefers to F/U with Dr. Hernandez. 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 Patient elects no surgery. 0955: I have spoken with the patient and discussed today?s findings, in addition to providing specific details for the plan of care. Questions are answered and there is an agreement with the plan. Re-assessment at the time of disposition demonstrates that the patient is in no acute distress. The patient has remained stable throughout the entire ED visit and is without objective evidence for acute process requiring urgent intervention or hospitalization. The patient is stable for discharge; counseling is provided and documented as above, discussing symptomatic treatment and specific conditions for return.
[2025-04-05 06:15] VITALS: BP 135/76; PULSE 58; RESP 18; O2SAT 95
[2025-04-05] MEDS: cefTRIAXone/D5w 1gm IV premix 1 GM/50 ML BAG IV (06:42)
[2025-04-05 08:00] VITALS: BP 157/83; PULSE 56; RESP 17; TEMP 37.2; O2SAT 95
[2025-04-05 09:06] LABS: Troponin I < 0.020 ng/mL (0.0-0.045)
[2025-04-05 10:17] VITALS: BP 149/77; PULSE 58; RESP 16; TEMP 36.7; O2SAT 99
== END 2025-04-05 10:17 | disposition home or self-care (01) ==
PROVIDERS: Emergency Medicine; Emergency Provider Emergency Medicine; PCP Family Medicine
DX: K29.70 Gastritis, unspecified, without bleeding (principal); K80.20 Calculus of gallbladder without cholecystitis without obstruction; I10 Essential (primary) hypertension; E78.5 Hyperlipidemia, unspecified; E11.9 Type 2 diabetes mellitus without complications
CPT/HCPCS: 36415; 71045; 74177; 76705; 80053; 81001; 83690; 83735; 83880; 84484; 85025; 85610; 85730; 87040; 93005; 96361; 96365; 96375; 99285; A4649; J0696; J1171; J2405; J7030; Q9967

== ENCOUNTER → 2025-04-07 | Outpatient (BNVA) | payer MEDICARE, MEDICAID, SELFPAY | END | disposition home or self-care (01) | PROVIDERS: PCP Physician Assistant Medical; Referring Provider Physician Assistant Medical; Visit Provider Urology | DX: K80.20 Calculus of gallbladder without cholecystitis without obstruction (principal); N13.30 Unspecified hydronephrosis; C61 Malignant neoplasm of prostate; E11.9 Type 2 diabetes mellitus without complications; Z79.4 Long term (current) use of insulin; I10 Essential (primary) hypertension; K21.9 Gastro-esophageal reflux disease without esophagitis; Z85.51 Personal history of malignant neoplasm of bladder; E78.00 Pure hypercholesterolemia, unspecified | CPT/HCPCS: 99212; 99213; G0463 ==

== ENCOUNTER → 2025-04-18 | Outpatient (CLI) | payer OTHER, MEDICAID, SELFPAY ==
[2025-04-18 10:23] LABS: Basophils % (Auto) 0 % (0-2.5); Eosinophils # (Auto) 0.2 Thou/mm3 (0.0-0.5); Eosinophils % (Auto) 2 % (0-10); Hematocrit 42.3 % (41.0-53.0); Hemoglobin 14.8 g/dL (13.5-16.0); Immature Granulocytes % (Auto) 1 % (0-0); Immature Granulocytes Auto 0.06 Thou/mm3 (0.00-0.00); Lymphocytes # (Auto) 1.8 Thou/mm3 (1.0-4.8); Lymphocytes % (Auto) 23 % (10-50); Mean Corpuscular Hemoglobin 30.3 pg (25.0-35.0); Mean Corpuscular Volume 87 fL (80-100); Monocytes # (Auto) 0.6 Thou/mm3 (0.0-0.8); Monocytes % (Auto) 8 % (0-12); Neutrophils # (Auto) 4.9 Thou/mm3 (1.8-7.7); Neutrophils % (Auto) 65 % (37-80); Nucleated Red Blood Cell % 0 /100 WBC (0); Platelet Count 257 Thou/mm3 (140-440); RDW Standard Deviation 40.3 fL (35.1-43.9); Red Blood Count 4.88 Miln/mm3 (4.50-5.90); White Blood Count 7.6 Thou/mm3 (3.8-10.6)
[2025-04-18 10:41] LABS: Alanine Aminotransferase 12 U/L (10-49); Albumin, Serum 4.4 gm/dL (3.4-4.8); Albumin/Globulin Ratio 1.6 (1.2-2.2); Alkaline Phosphatase 92 U/L (46-116); Anion Gap 14 (7-16); Aspartate Amino Transferase 18 U/L (0-34); BUN/Creatinine Ratio 11 Ratio (12-20); Bilirubin,Total 0.4 mg/dL (0.3-1.2); Blood Urea Nitrogen 16 mg/dL (9-23); Calcium 9.1 mg/dL (8.3-10.6); Calcium (Corrected) 9.1 mg/dL (8.5-10.1); Carbon Dioxide 23.9 mMol/L (20.0-31.0); Chloride 105 mMol/L (98-107); Creatinine (Component) 1.4 mg/dL (0.6-1.3); Globulin 2.7 gm/dL (2.3-3.5); Glucose 284 mg/dL (74-106); Osmolality,Calculated 296 (275-295); Potassium 3.6 mMol/L (3.4-5.1); Sodium 143 mMol/L (136-145); Total Protein 7.1 gm/dL (5.7-8.2); eGFR 53 See Note
== END | disposition home or self-care (01) ==
LOC: COPL 08:44
PROVIDERS: PCP Family Medicine; Referring Provider Student in an Organized Health Care Education/Training Program; Visit Provider Student in an Organized Health Care Education/Training Program
DX: K81.0 Acute cholecystitis (principal)
CPT/HCPCS: 36415; 80053; 85025

== ENCOUNTER 2025-04-20 01:25 | Emergency (ER) | payer OTHER, MEDICAID, SELFPAY ==
--- NOTE | 2025-04-20 01:44 | EDNOTE_ITS ---
ED Abdominal Pain RME/HPI General Chief Complaint: Abdominal Pain Stated complaint: UPPER ABD PAIN X1 HOUR Time seen by provider: 04/20/25 02:06 Arrival date/time: 04/20/25 01:25 RME / HPI RME / HPI narrative: This section includes all my notes and documentations, including HPI, PE, and ED course. Timothy Magdaleno MD HPI: 74 y/o male here with severe abdominal pain for the past few hours. Has chronic abdominal pain due to known gallstones, surgery scheduled in about a week on 04/29/2025. But the pain has been intolerable in the past few hours. With severe nausea. No fever. No other complaints. ROS: All negative except as documented in HPI. Physical Exam: General: Alert and oriented. In severe pain. Eyes: Conjunctivae and lids clear. ENT: No nasal congestion. Neck: Supple. Heart: RRR. Lungs: No respiratory distress. Good air movement. No rhonchi, wheezing, rales. Abdomen: Soft with severe tenderness, difficult to localize. Normal bowel sounds. No distension. No rebound or guarding. Back: No CVA tenderness. Skin: Warm and dry. Neuro: Alert and oriented X 3. I reviewed diagnostic test results: Blood tests and urine tests remarkable for WBC 12.8 and significant hematuria. Abdominal CT report pending. Gallbladder ultrasound report pending. Initially, patient was given Zofran ODT and two Tylenol #3. No improvement noted. He was then given IV fluid, Zofran, Dilaudid, Protonix, and famotidine. He felt much better. At 6 AM on 04/20/2025, the care of the patient was transferred to Dr Rodriguez. Timothy Magdaleno MD Related Data Home Medications ?Medication ?Instructions ?Recorded ?Confirmed lovastatin 40 mg tablet 40 mg PO 1XD 01/25/23 hydrochlorothiazide 50 mg tablet 50 mg PO QAM 06/08/23 04/07/25 sitagliptin phosphate 100 mg 100 mg PO QDAY 02/06/24 0 04/07/25 tablet (Januvia) cetirizine 10 mg tablet 10 mg PO DAILY 02/27/2403/20 lisinopril 40 mg tablet 40 mg PO DAILY 02/27/2403/20 Previous Rx's ?Medication ?Instructions ?Recorded hydrocodone 5 mg-acetaminophen 325 1 tab PO BID PRN pa in #7 tabs 02/05/24 mg tablet Held on 02/27/24. Instructions: Resume on 02/28/24. diclofenac sodium 1 % gel topical 2 g topical QID #1 e a 12/02/24 kit Allergies Allergy/AdvReac Type Severity Reaction Status Date / Time tramadol Allergy Severe Swelling Verified 04/20/25 01:26 of Lip/Tongue/Throat UNKNOWN HTN MED Allergy Severe Swelling Uncoded 04/20/25 01:26 of Lip/Tongue/Throat Review of Systems Review of Systems Systems Reviewed: All systems reviewed, normal except as documented Past Medical History Past Medical History CARDIAC: Positive Cardiac Disorders (HTN), Hypercholesterolemia and Hypertension GASTROINTESTINAL: Positive Gastrointestinal Disorders, Diverticulitis, Ulcer and Gastroesophageal Reflux Disease GENITOURINARY: Positive Genitourinary Disorders, Kidney Stones, Neurogenic Bladder and Benign Prostatic Hyperplasia MUSCULOSKELETAL: Positive Musculoskeletal Disorders, Arthritis, Gout and Carpal Tunnel Syndrome (RIGHT CARPAL TUNNEL SURGERY) ENDOCRINE: Positive Endocrine Disorders and Diabetes Mellitus Type 2 (JANUVIA, GLIPIZIDE) OTHER HISTORY: Positive Hospitalization, Blood Transfusions, Blood Transfusion Reaction (NA) and Cancer (BLADDER CANCER) Family History FAMILY HISTORY: Positive Family Cardiac Disorders, Family Cancer and Family Surgery Surgical History SURGICAL: Positive Abdominal Surgery (BLADDER REMOVED) and Transurethral Resection ED Exam Narrative Physical exam: Refer to HPI above Course Quality Measures none Orders Category Date Time Status Saline [Insert IV] NOW Care 04/20/25 04:[address] abdomen pelvis wo con Stat Exams 04/20/25 02:53 Taken US gall bladder Stat Exams 04/20/25 01:45 Taken Amylase Stat Lab 04/20/25 02:13 Completed Bilirubin,Direct Stat Lab 04/20/25 02:13 Completed CBC Stat Lab 04/20/25 02:13 Completed CMP [Comprehensive Metabolic Panel] Stat Lab 04/20/25 02:13 Completed Lipase Stat Lab 04/20/25 02:13 Completed Magnesium Stat Lab 04/20/25 02:13 Completed Urinalysis, C/S if Indicated Stat Lab 04/20/25 02:16 Completed ACETAMINOPHEN w/COD 300-30 [Tylenol w/Cod #3] Med 04/20/25 01:44 Discontinued 2 tab PO X1 ONE Famotidine Inj [Pepcid Inj] Med 04/20/25 04:06 Discontinued 20 mg IVP X1 ONE HYDROmorphone INJ [Dilaudid Inj] Med 04/20/25 04:06 Discontinued 1 mg IVP X1 ONE Ondansetron Inj [Zofran Inj] Med 04/20/25 04:06 Discontinued 4 mg IVP X1 ONE Ondansetron Odt [Zofran Odt] Med 04/20/25 01:44 Discontinued 4 mg PO X1 ONE Pantoprazole Inj [Protonix Inj] Med 04/20/25 04:06 Discontinued 40 mg IVP X1 ONE Sodium Chloride 0.9% 1000 ml [Ns] 1,000 ml Med 04/20/25 04:06 Discontinued IV 999 mls/hr Vital Signs Vital signs: Vital Signs Temperature 97.6 F 04/20/25 01:47 Pulse Rate 60 04/20/25 01:47 Respiratory Rate 17 04/20/25 01:47 Blood Pressure 161/73 H 04/20/25 01:47 Pulse Oximetry (%) 95 04/20/25 01:47 Oxygen Delivery Method Room Air 04/20/25 01:47 Abdominal Pain MDM MDM Narrative MDM Narrative:: Scribe Attestation: I, Debbie Melendez, am scribing for and in the presence of Dr. Magdaleno. Provider Notation: Although this document has been carefully reviewed, there may still be some phonetic and other typographical errors.? These errors are purely grammatical due to imperfections in the software program and should not be construed in any way to? compromise the substance of the patient's medical care during this visit. 74 y/o male here with severe abdominal pain for the past few hours. Has chronic abdominal pain due to known gallstones, surgery scheduled in about a week on 04/29/2025. But the pain has been intolerable in the past few hours. With severe nausea. No fever. No other complaints. Patient data External records reviewed:: [facility] previous records (Reviewed prior ED records from 04/05/25. Patient was seen for Abdominal pain.) Clinical information provided by:: patient Social determinants that could affect healthcare access:: none Patient has the following chronic illnesses:: Hypercholesterolemia, Hypertension, Diverticulitis, Ulcer, Gastroesophageal Reflux Disease, Kidney Stones, Neurogenic Bladder, Benign Prostatic Hyperplasia, Arthritis, Gout, Carpal Tunnel Syndrome, Diabetes Mellitus Type 2 How is presenting disease/condition affected by chronic disease/condition?: exacerbated by Evaluation data The following diagnostics were reviewed and interpreted by me:: lab results and radiology exam(s) Lab and/or radiology exams considered but not ordered:: None Interpretation Summary: I reviewed diagnostic test results: Blood tests and urine tests remarkable for WBC 12.8 and significant hematuria. Abdominal CT report pending. Gallbladder ultrasound report pending. Medications / Prescriptions Medications or Prescriptions considered but not ordered:: None Medication administrations:: Medication Administration History Discontinued Medications Acetaminophen/Codeine Phosphate (Acetaminophen W/Cod 300-30 Tablet) 2 tab PO X1 ONE Stop: 04/20/25 01:45 Last Admin: 04/20/25 01:54 Dose: 2 tab Documented By: BD Famotidine (Famotidine Inj 10 Mg/Ml Vial 2 Ml) 20 mg IVP X1 ONE Stop: 04/20/25 04:07 Last Admin: 04/20/25 05:00 Dose: 20 mg Documented By: CG Hydromorphone HCl (Hydromorphone Inj 2 Mg/Ml Vial) 1 mg IVP X1 ONE Stop: 04/20/25 04:07 Last Admin: 04/20/25 05:01 Dose: 1 mg Documented By: OUSMANE Sodium Chloride (Ns) 1,000 mls @ 999 mls/hr IV .Q1H1M ONE Stop: 04/20/25 05:06 Last Admin: 04/20/25 05:02 Dose: 999 mls/hr Documented By: CG Ondansetron HCl (Ondansetron Odt 4 Mg Tabrap) 4 mg PO X1 ONE; Protocol Stop: 04/20/25 01:45 Last Admin: 04/20/25 01:55 Dose: 4 mg Documented By: BD Ondansetron HCl (Ondansetron Inj 2 Mg/Ml Inj 2 Ml) 4 mg IVP X1 ONE; Protocol Stop: 04/20/25 04:07 Last Admin: 04/20/25 05:01 Dose: 4 mg Documented By: CG Pantoprazole Sodium (Pantoprazole Inj 40 Mg Vial) 40 mg IVP X1 ONE Stop: 04/20/25 04:07 Last Admin: 04/20/25 05:01 Dose: 40 mg Documented By: CG Tylenol w/ Codeine, Zofran, IV fluid, Pepcid, Protonix Dilaudid. Consultations Consultation(s) initiated? (list below): No Diagnosis Differential diagnosis abdominal pain: abdominal pain, acute appendicitis, calculus of kidney, constipation, diverticulitis, gastroenteritis, pancreatitis, small bowel obstruction and other (Biliary colic, GERD, PUD, gastritis) Most likely diagnosis given after review of the tests above:: Complete diagnostic test results are pending. Admission Indicated Admission indicated?: not indicated Explain why admission is indicated or not indicated:: Complete diagnostic test results are pending. Admission Request Was there a request for admission?: No Disposition Plan Disposition Plan: other (specify) (Care of the patient was transferred to Dr Rodriguez.) Discharge Plan Prescriptions/Referrals Prescriptions/Med Rec: No Action Januvia 100 mg tablet 100 mg PO QDAY hydrochlorothiazide 50 mg tablet 50 mg PO QAM cetirizine 10 mg tablet 10 mg PO DAILY Patient Comments: TOME LUIGI TABLETA TODOS LOS D lisinopril 40 mg tablet 40 mg PO DAILY Patient Comments: TOME LUIGI TABLETA TODOS LOS D FOR 90 DAYS diclofenac sodium 1 % kit 2 g topical QID Qty: 1 0RF Rx Instructions: apply to single knee lovastatin 40 mg tablet 40 mg PO 1XD Patient Comments: TOME LUIGI TABLETA TODOS LOS D WITH THE EVENING MEAL FOR 90 DAYS hydrocodone-acetaminophen 5-325 mg tablet 1 tab PO BID PRN (Reason: pain) Qty: 7 0RF Referrals: Edmond Harris MD [Primary Care Provider] - In 1 week Problem List Clinical Impression: Abdominal pain Patient/Caregiver Discharge Instructions Print Language: [place]
--- NOTE | 2025-04-20 01:45 | XR_ITS ---
Examination: Abdomen sonogram, Limited Date and time of exam: April 20, 2025 0246 hours INDICATIONS: Abdominal pain beginning one hour ago, history gallstones Technique: Real-time white scale transabdominal sonographic images of the upper abdomen obtained. Findings: Cholelithiasis, gallbladder wall 0.3 cm no edema Common bile duct 0.4 cm Pancreas obscured by bowel gas Liver 14.8 cm fatty infiltration Normal bilateral renal portal venous flow Patent IVC IMPRESSION: Cholelithiasis, negative for cholecystitis
[2025-04-20 01:47] VITALS: BP 161/73; PULSE 60; RESP 17; TEMP 36.4; O2SAT 95
[2025-04-20] MEDS: ACETAMINOPHEN w/COD 300-30 TABLET 2 TAB PO (01:54)
[2025-04-20] MEDS: ONDANSETRON ODT 4 MG TABRAP PO (01:55)
[2025-04-20 02:31] LABS: Collection Type, Urine Clean Catch; Squamous Epithelial Cell,Urine 0 /hpf (0-5)
[2025-04-20 02:37] LABS: Basophils # (Auto) 0.1 Thou/mm3 (0.0-0.2); Basophils % (Auto) 0 % (0-2.5); Eosinophils # (Auto) 0.3 Thou/mm3 (0.0-0.5); Eosinophils % (Auto) 2 % (0-10); Hemoglobin 14.5 g/dL (13.5-16.0); Immature Granulocytes % (Auto) 1 % (0-0); Immature Granulocytes Auto 0.08 Thou/mm3 (0.00-0.00); Lymphocytes # (Auto) 4.7 Thou/mm3 (1.0-4.8); Lymphocytes % (Auto) 37 % (10-50); Mean Corpuscular HGB Conc 35.4 g/dl (31.0-37.0); Mean Corpuscular Hemoglobin 29.7 pg (25.0-35.0); Mean Corpuscular Volume 84 fL (80-100); Monocytes # (Auto) 1.4 Thou/mm3 (0.0-0.8); Monocytes % (Auto) 11 % (0-12); Neutrophils # (Auto) 6.3 Thou/mm3 (1.8-7.7); Neutrophils % (Auto) 49 % (37-80); Nucleated Red Blood Cell % 0 /100 WBC (0); Platelet Count 270 Thou/mm3 (140-440); RDW Standard Deviation 39.8 fL (35.1-43.9); Red Blood Count 4.88 Miln/mm3 (4.50-5.90); White Blood Count 12.8 Thou/mm3 (3.8-10.6)
[2025-04-20 02:47] LABS: Bilirubin,Urine Negative (Negative); Blood,Urine 2+ (Negative); Clarity,Urine Clear (Clear/Hazy); Color,Urine Lt-Yellow (Lt Yel-Yel); Culture Indicated,Urine Not Indicated; Glucose, Urine Trace (Negative); Ketones,Urine Negative (Negative); Leukocyte Esterase,Urine Positive (Negative); Nitrite,Urine Negative (Negative); PH,Urine 6.5 (5.0-7.0); Protein,Urine Negative (Neg - Trace); RBC,Urine 72 /hpf (0-3); Transitional Epi Cells,Urine < 1 /hpf (0-5); Urobilinogen,Urine Negative mg/dL (0.0-1.0); WBC,Urine 7 /hpf (0-5)
--- NOTE | 2025-04-20 02:53 | XR_ITS ---
Examination: CT abdomen and pelvis without contrast. Coronal 3-D reconstructions. Sagittal 2-D reconstructions. Date and time of exam:April 20, 2025, 0442 hours Comparison April 05, 2025 INDICATIONS: Abdominal pain and hematuria today CTDI: vol (mGy): 6.89 DLP: (mGycm): 379 Technique: Axial images of the abdomen have been obtained, 3 mm slice thickness Intravenous contrast material has not been administered. Low dose protocols were performed. One or more of the following dose reduction techniques were used; automated exposure control, adjustment of the mA and/or KV according to patient size, use of iterative reconstruction technique. Findings: No focal liver or splenic lesions Cholelithiasis No pancreatic mass Mild renal parenchymal scar formation, no renal or ureteral calculi, no hydronephrosis Aorta normal size Mildly fluid distended small bowel loops with diverting urostomy Normal appendix Colonic diverticulosis, no definite diverticulitis Absent urinary bladder Advanced degenerative disc disease L5-S1 IMPRESSION: Cholelithiasis Mild bilateral renal parenchymal scar formation Diverting urostomy with no significant hydronephrosis Normal appendix. Colonic diverticulosis, no diverticulitis
[2025-04-20 03:00] LABS: Alanine Aminotransferase 12 U/L (10-49); Albumin, Serum 4.6 gm/dL (3.4-4.8); Albumin/Globulin Ratio 1.6 (1.2-2.2); Alkaline Phosphatase 97 U/L (46-116); Amylase 52 U/L (30-118); Anion Gap 12 (7-16); Aspartate Amino Transferase 15 U/L (0-34); BUN/Creatinine Ratio 12 Ratio (12-20); Bilirubin,Direct 0.2 mg/dL (0.0-0.3); Bilirubin,Total 0.5 mg/dL (0.3-1.2); Blood Urea Nitrogen 18 mg/dL (9-23); Calcium 9.5 mg/dL (8.3-10.6); Calcium (Corrected) 9.5 mg/dL (8.5-10.1); Carbon Dioxide 23.9 mMol/L (20.0-31.0); Chloride 107 mMol/L (98-107); Creatinine (Component) 1.5 mg/dL (0.6-1.3); Globulin 2.8 gm/dL (2.3-3.5); Glucose 208 mg/dL (74-106); Lipase 48 U/L (12-53); Magnesium 1.9 mg/dL (1.6-2.6); Osmolality,Calculated 292 (275-295); Potassium 3.5 mMol/L (3.4-5.1); Sodium 143 mMol/L (136-145); Total Protein 7.4 gm/dL (5.7-8.2); eGFR 49 See Note
[2025-04-20 04:30] VITALS: BMI 25.7
[2025-04-20] MEDS: FAMOTIDINE INJ 10 MG/ML VIAL 2 ML 20 MG IVP (05:00)
[2025-04-20] MEDS: PANTOPRAZOLE INJ 40 MG VIAL IVP (05:01)
[2025-04-20] MEDS: ONDANSETRON INJ 2 MG/ML INJ 2 ML 4 MG IVP (05:01)
[2025-04-20] MEDS: HYDROmorphone INJ 2 MG/ML VIAL 1 MG IVP (05:01)
[2025-04-20] MEDS: SODIUM CHLORIDE 0.9% 1000 ML 1,000 ML 999 ML IV (05:02)
[2025-04-20 06:00] VITALS: BP 130/62; PULSE 63; RESP 18; TEMP 36.6; O2SAT 93
--- NOTE | 2025-04-20 06:29 | EDNOTE_ITS ---
Emergency Room Addendum <Jesús Rodriguez MD - Last Filed: 04/20/25 06:59> Addendum Narrative: 0600: Care assumed by previous shift provider. Past medical, surgical, social and family history reviewed. Vitals and home medications reviewed. Results and treatment plan discussed. I will assume the care of the patient at this time and will follow the patient, pending final disposition. On my encounter patient is pain-free. He states pain was primarily in the epigastric region starting around 11 PM last night. He states this is the second time this has happened last time was on the was seen here in the emergency department. Their follow-up from the emergency department visit with Dr. Samano is when offered and is scheduled laparoscopic cholecystectomy on the of this month. He denies diarrhea or constipation. He denies any urinary complaints. He denies hematuria. <Destini Lennon - Last Filed: 04/20/25 10:09> Addendum Narrative: 0600: Care assumed by previous shift provider. Past medical, surgical, social and family history reviewed. Vitals and home medications reviewed. Results and treatment plan discussed. I will assume the care of the patient at this time and will follow the patient, pending final disposition. On my encounter patient is pain-free. He states pain was primarily in the epigastric region starting around 11 PM last night. He states this is the second time this has happened last time was on 04/05/2025 and was seen here in the emergency department. Their follow-up from the emergency department visit with Dr. Samano is when offered and is scheduled laparoscopic cholecystectomy on the of this month. He denies diarrhea or constipation. He denies any urinary complaints. He denies hematuria. 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 He has chronic hematuria, which is documented in prior visits. He follows urologist Dr. Peter tillman for ongoing management of his urologic conditions. 0934: I spoke with surgeon Dr. Haro. Discussed patients PMHx, HPI, ED course, exam findings, labs, and radiology results. 0945: We reviewed all the results, analysis, and treatment plans. Patient is amenable to discharge. Patient remains clinically stable throughout the emergency department visit. Strict return precautions were outlined. RADIOLOGY Ordering Physician: Timothy Magdaleno MD Date of Service: 04/20/25 Procedure(s): US gall bladder Accession Number(s): [id number] cc: Timothy Magdaleno MD; Ryan Gilman MD; Edmond Harris MD~ Examination: Abdomen sonogram, Limited Date and time of exam: April 20, 2025 0246 hours INDICATIONS: Abdominal pain beginning one hour ago, history gallstones Technique: Real-time white scale transabdominal sonographic images of the upper abdomen obtained. Findings: Cholelithiasis, gallbladder wall 0.3 cm no edema Common bile duct 0.4 cm Pancreas obscured by bowel gas Liver 14.8 cm fatty infiltration Normal bilateral renal portal venous flow Patent IVC IMPRESSION: Cholelithiasis, negative for cholecystitis Dictated By:Ryan Gilman MD Signed By:<Electronically signed by Ryan Gilman MD in [place]>04/20/25 0902 Ordering Physician: Timothy Magdaleno MD Date of Service: 04/20/25 Procedure(s): CT abdomen pelvis wo con Accession Number(s): [id number] cc: Timothy Magdaleno MD; Ryan Gilman MD; Edmond Harris MD~ Examination: CT abdomen and pelvis without contrast. Coronal 3-D reconstructions. Sagittal 2-D reconstructions. Date and time of exam:April 20, 2025, 0442 hours Comparison April 05, 2025 INDICATIONS: Abdominal pain and hematuria today CTDI: vol (mGy): 6.89 DLP: (mGycm): 379 Technique: Axial images of the abdomen have been obtained, 3 mm slice thickness Intravenous contrast material has not been administered. Low dose protocols were performed. One or more of the following dose reduction techniques were used; automated exposure control, adjustment of the mA and/or KV according to patient size, use of iterative reconstruction technique. Findings: No focal liver or splenic lesions Cholelithiasis No pancreatic mass Mild renal parenchymal scar formation, no renal or ureteral calculi, no hydronephrosis Aorta normal size Mildly fluid distended small bowel loops with diverting urostomy Normal appendix Colonic diverticulosis, no definite diverticulitis Absent urinary bladder Advanced degenerative disc disease L5-S1 IMPRESSION: Cholelithiasis Mild bilateral renal parenchymal scar formation Diverting urostomy with no significant hydronephrosis Normal appendix. Colonic diverticulosis, no diverticulitis Dictated By:Ryan Gilman MD Signed By:<Electronically signed by Ryan Gilman MD in [place]>04/20/25 0804
[2025-04-20 07:33] VITALS: BP 129/66; PULSE 78; RESP 18; TEMP 36.5; O2SAT 94
[2025-04-20 10:02] VITALS: BP 123/69; PULSE 61; RESP 14; TEMP 36.8; O2SAT 97
--- NOTE | 2025-04-21 01:10 | PRELIM_ITS ---
CT scan of the abdomen and pelvis without intravenous contrast (axial sections with sagittal and coronal reformats) April 20, 2025 0442 hours Clinical History: Abdominal pain, hematuria Comparison: None Findings: The lung bases are clear. Cholelithiasis, without acute cholecystitis. The liver, pancreas, spleen, kidneys and adrenals are unremarkable on this noncontrast study. Moderate stool in the colon. Colonic diverticulosis, without acute diverticulitis. Postsurgical changes are noted in the bowel. No bowel obstruction. The appendix is within normal limits. There is no mesenteric or retroperitoneal adenopathy. Urinary bladder is surgically absent, with ileal conduit and evidence of ileostomy in the right lower quadrant. Small parastomal hernia containing small bowel. No obstruction. There is mild left hydroureter with urothelial enhancement and periureteric stranding. No urinary stones There is moderate peritoneal fat stranding surrounding the inferior umbilical vein anteriorly in the abdomen. There is no free fluid or free air. Vascular calcifications of abdominal and branch vessels. Small fat-containing bilateral inguinal hernias. Multilevel degenerative changes are noted in the imaged spine. Impression: 1. Mild left hydroureter with urothelial thickening/enhancement and periureteric stranding, without obstructing calculus. Findings suspicious for ureteritis. 2. Cholelithiasis, without acute cholecystitis. 3. Small parastomal hernia containing small bowel adjacent to the ileostomy. No bowel obstruction. 4. Constipation. 5. Nonspecific fat stranding surrounding the umbilical vein in the anterior abdomen. This may related to a pathology such as partial thrombosis of the recanalized umbilical vein versus adjacent intraperitoneal focal fat infarction. Report Electronically Signed By: Gian Aguilera 04/21/2025 1:09:45 AM [EST]
== END 2025-04-20 10:01 | disposition home or self-care (01) ==
PROVIDERS: Emergency Medicine; Emergency Provider Emergency Medicine; PCP Family Medicine
DX: K80.20 Calculus of gallbladder without cholecystitis without obstruction (principal); K57.30 Diverticulosis of large intestine without perforation or abscess without bleeding; N28.89 Other specified disorders of kidney and ureter; R31.9 Hematuria, unspecified
CPT/HCPCS: 36415; 74176; 76705; 80053; 81001; 82150; 82248; 83690; 83735; 85025; 96361; 96374; 96375; 99284; J1171; J2405; J2470; J3490; J7030; Q0162; A9270

== ENCOUNTER 2025-04-29 06:01 | Inpatient (IN) | payer OTHER, MEDICAID, MEDICARE, SELFPAY ==
[2025-04-25 11:59] VITALS: BMI 24.8
[2025-04-25 14:03] LABS: Basophils % (Auto) 0 % (0-2.5); Eosinophils # (Auto) 0.2 Thou/mm3 (0.0-0.5); Eosinophils % (Auto) 3 % (0-10); Hematocrit 42.2 % (41.0-53.0); Hemoglobin 14.8 g/dL (13.5-16.0); Immature Granulocytes % (Auto) 1 % (0-0); Immature Granulocytes Auto 0.06 Thou/mm3 (0.00-0.00); Lymphocytes # (Auto) 1.9 Thou/mm3 (1.0-4.8); Lymphocytes % (Auto) 26 % (10-50); Mean Corpuscular HGB Conc 35.1 g/dl (31.0-37.0); Mean Corpuscular Hemoglobin 29.4 pg (25.0-35.0); Mean Corpuscular Volume 84 fL (80-100); Monocytes # (Auto) 0.7 Thou/mm3 (0.0-0.8); Monocytes % (Auto) 10 % (0-12); Neutrophils # (Auto) 4.6 Thou/mm3 (1.8-7.7); Neutrophils % (Auto) 61 % (37-80); Nucleated Red Blood Cell % 0 /100 WBC (0); Platelet Count 288 Thou/mm3 (140-440); Red Blood Count 5.04 Miln/mm3 (4.50-5.90); White Blood Count 7.6 Thou/mm3 (3.8-10.6)
[2025-04-25 14:12] LABS: INR 1.1 (0.9-1.3); Partial Thromboplastin Time 29.1 Seconds (22.0-36.0); Prothrombin Time 11.6 Seconds (9.0-12.2)
[2025-04-25 14:13] LABS: Alanine Aminotransferase 13 U/L (10-49); Albumin, Serum 4.8 gm/dL (3.4-4.8); Albumin/Globulin Ratio 1.7 (1.2-2.2); Alkaline Phosphatase 90 U/L (46-116); Anion Gap 11 (7-16); Aspartate Amino Transferase 21 U/L (0-34); BUN/Creatinine Ratio 12 Ratio (12-20); Bilirubin,Total 0.4 mg/dL (0.3-1.2); Blood Urea Nitrogen 14 mg/dL (9-23); Calcium 10.1 mg/dL (8.3-10.6); Calcium (Corrected) 10.1 mg/dL (8.5-10.1); Carbon Dioxide 21.8 mMol/L (20.0-31.0); Chloride 103 mMol/L (98-107); Creatinine (Component) 1.2 mg/dL (0.6-1.3); Estimated Creatinine Clearance 46.6 mL/min (>60); Globulin 2.8 gm/dL (2.3-3.5); Glucose 237 mg/dL (74-106); Osmolality,Calculated 280 (275-295); Potassium 3.9 mMol/L (3.4-5.1); Sodium 136 mMol/L (136-145); Total Protein 7.6 gm/dL (5.7-8.2); eGFR > 60 See Note
[2025-04-29] VITALS (18 sets, daily range): BP systolic 117–166; BP diastolic 60–94; PULSE 63–95; RESP 12–20; TEMP 36.4–37.3; O2SAT 92–97; BMI 33.5
--- NOTE | 2025-04-29 06:35 | SUR.PREOP ---
Spoke[address] Snowden and made him aware of pt.'s pain level 10/10, pt. is grimancing and crying. Dr. Snowden ordered 15mg of toradol IV x1 and assess pain level in 15 minutes, if pt. is still in pain give tylenol 1gm IV x1. Will endorse.
[2025-04-29] MEDS: RINGERS LACTATED 1000 ML 1,000 ML 20 ML IV (06:56)
[2025-04-29] MEDS: KETOROLAC INJ 30 MG/ML VIAL 15 MG IVP (06:56)
[2025-04-29] MEDS: ACETAMINOPHEN IVPB 1,000 MG/100 ML VIAL 250 MG IV (07:10)
--- NOTE | 2025-04-29 10:12 | PD.SUROPNT ---
Date of Procedure 04/29/25 Pre Op Diagnosis Symptomatic cholelithiasis with recurrent biliary colic Post Op Diagnosis Same Procedure Open cholecystectomy Findings Patient was found to have extensive adhesions because of the previous surgery for cystectomy and ileal conduit and midline exploratory laparotomy Procedure Description After the patient was brought to the operating room endotracheal anesthesia was given. Abdomen was prepped with ChloraPrep solution after excluding the ileal conduit carefully by using Tegaderm and preventing any leakage into the operative area. Patient received 2 g of Ancef intravenously. Timeout was performed. Then standard right subcostal incision was made after injecting half percent Marcaine. Rectus muscle was divided and the abdominal cavity was entered. Immediately considerable amount of omentum that was stuck in the right upper quadrant was seen. This was gently pulled away and using Smith retractors I retracted the stomach on the colon away from the liver. I had a second child care center assistant director retracting the liver superiorly with a [place]. The gallbladder was found to be noninflamed but it was very much intrahepatic. Only a portion of the gallbladder was seen. I could not see the neck of the gallbladder because of extensive adhesions from the previous surgery. Therefore I opened the gallbladder and the bile was aspirated. I was able to remove soft pigmented stones in the neck of the gallbladder using a gallbladder stone forceps. Then I dissected the gallbladder by staying within the gallbladder to avoid injury to the cystic artery or duct. When the neck was reached with some difficulty I was able to find of the neck of the gallbladder going into the cystic duct. Using a probe I identified the cystic duct. Cystic artery was identified and clipped doubly with a medium sized clip. Then the gallbladder neck was encircled around identically and tied with 2-0 silk. I also placed another large clip proximal to the tie over the cystic duct. Then the portion of the gallbladder was removed but I left a small portion stuck to the liver because difficulty in removing. Cautery was used to coagulate the mucosa and after checking for the bleeding points the left and Surgicel the liver bed. Then the sponge count was confirmed and the wound was closed with 0 PDS for the posterior rectus sheath and the peritoneum and another 0 PDS for the anterior rectus sheath. Subcutaneous tissue was irrigated and I used a 3-0 plain for subcutaneous Lora's layer. Skin was injected with half percent Marcaine and stapled to the. Dressing was applied with Adaptic and 4 x 4 gauze and patient tolerated the procedure well and left operating room in stable condition Anesthesia GETA Pathology / specimen Other (The gallbladder and the stones) IVF Infused 1,000 Estimated Blood Loss 150 Condition Stable Disposition PACU Surgeon Mitra Samano MD Surgical Staff Operation Date: 04/29/25 08:00 Case Staff Anesthesiologist: Guru Snowden RN First Assistant: Jes Brown
[2025-04-29] MEDS: INSULIN HUM REGULAR 1 UNIT/0.01 ML (PER UNIT) SC ×2 (10:55→17:52)
[2025-04-29] MEDS: MORPHINE SULF INJ 10 MG/ML VIAL 5 MG IVP ×3 (12:32→22:09)
[2025-04-29] MEDS: SODIUM CHLORIDE 0.9% 1000 ML 1,000 ML 125 ML IV ×2 (12:33→20:38)
--- NOTE | 2025-04-29 14:07 | SUR.PHASEI ---
1001: Pt received in [facility] via hospital bed. Report from Norma FROST and Dr. Rocha. Pt obtunded. Is arousable with eye opening then drifts back to sleep. Resp even, unlabored. VS stable. Dressing to abdomen dry, clean, intact. Urostomy bag right side with yellow cloudy urine. No c/o pain. FS blood sugar 216mg/dl. Anesthesia not treating and recommended to notify surgeon. 1045: Received new order. 1100: Insulin regular administered. Unable to document co-signer. IT notified. 1139: Follow up BS 199mg/dl. Dr. Samano at bedside. Results relayed to him. 1155: Received room assignment. Pt has been resting with no complaints voiced. VS stable. Dressing to abdomen remains dry, clean, intact. Report to 3rd floor. Pt transferred to Rm 350 in stable condition.
[2025-04-29] MEDS: KETOROLAC INJ 30 MG/ML VIAL IVP (14:54)
--- NOTE | 2025-04-29 16:07 | PC.NURSE ---
Dr. Haro made aware of patient's reports of uncontrolled pain, MD will call on-call hospitalist team for further management of pain, BP and DM.
--- NOTE | 2025-04-29 17:42 | PC.NURSE ---
MD Hager informed Nurse that Team C wanted the infusion on vancomycin restarted in alternative IV site. Infusion restarted at reduced rate to monitor for local site reaction per pharmacy recommendation.
--- NOTE | 2025-04-29 19:07 | PD.RESCONSUL ---
HPI Data of Consult Requesting Physician: Mitra Samano MD Admitting Provider: Mitra Samano MD Attending Provider: Mitra Samano MD Primary Care Provider: Edmond Harris MD Consult Narrative Reason for consult: Hypertension/diabetes History of present illness: 74-year-old male with past medical history of hypertension, diabetes, bladder cancer who came to [facility] for elective cholecystectomy by general surgery. Patient has been having right upper quadrant for the past 2 to 3 weeks with visits to the ER had studies and was told he had a stones in the gallbladder and was referred to general surgery from his PCP for cholecystectomy procedure today 04/29/2025. At present point in time patient denies any blurry vision, fever, chills, headache, chest pain, shortness of breath, abdominal pain, nausea, vomiting. Internal medicine team consulted for management of hypertension and diabetes. PMHx: Hypertension, diabetes, bladder cancer SX Hx: Bladder removal, 2X hernia repairs Social Hx: Denies cigarette use, denies alcohol use, denies illicit substances including THC Allergies: Tramadol (rash, itchiness, swelling of the neck) cc:: cc: Mitra Samano MD Review of Systems Review of Systems Systems Reviewed: All systems reviewed, normal except as documented Narrative Review of Systems: All 12 systems reviewed and found negative unless otherwise stated in the HPI. Exam Vital Signs Temp Pulse Resp BP Pulse Ox O2 Del Method O2 Flow Rate 98.2 F 83 18 155/78 H 94 L Nasal Cannula 3 04/29/25 16:00 04/29/25 16:04/29/25 16:04/29/25 16:04/29/25 16:04/29/25 16:04/29/25 16:00 Narrative Exam Physical Exam GENERAL: NAD, AAOx3 HEENT: Moist mucosa. Eyes open, symmetrical, & clear CARDIO: Heart RRR, no obvious murmurs PULM: No noted coughing/dyspnea CTA B/L, no R/W/R GI: Abdomen soft, nondistended, no pain on palpation. Surgical scars noted. Urostomy in place SKIN/MSK/EXT: No wounds/rashes/edema/amputations, no pain on palpation. Pedal pulses present B/L NEURO: AAOx3, no focal neuro deficits, able to move all 4 extremities Results Labs 04/25/25 12:27 04/25/25 12:27 Quality Measures Quality Measures VTE prophylaxis Advance care planning discussed with:: patient Medications Home Medications and Allergies Home Medications ?Medication ?Instructions ?Recorded ?Confirmed ?Type lovastatin 40 mg tablet 40 mg PO HS 01/25/23 04/25/25 History sitagliptin phosphate 100 mg 100 mg PO QDAY 02/06/24 04/25/25 History tablet (Januvia) lisinopril 40 mg tablet 40 mg PO DAILY 02/27/24 04/25/25 History amlodipine 5 mg tablet 5 mg PO DAILY 04/25/25 04/25/25 History glipizide 2.5 mg tablet, extended 2.5 mg PO DAILY 04/25/25 04/25/25 History release 24 hr insulin glargine 100 unit/mL (3 6 unit subcut QPM 04/25/25 04/25/25 History mL) subcutaneous pen (Lantus Solostar U-100 Insulin) Allergies Allergy/AdvReac Type Severity Reaction Status Date / Time tramadol Allergy Severe Swelling Verified 04/29/25 10:16 of Lip/Tongue/Throat UNKNOWN HTN MED Allergy Severe Swelling Uncoded 04/29/25 10:16 of Lip/Tongue/Throat Visit Medications Acetaminophen (Acetaminophen 325 Mg Tablet) 650 mg PO Q6HR PRN PRN Reason: [id number] Stop: 05/29/25 12:11 Dextrose (Dextrose 50%-Water Inj 50 Ml Syringe) 25 ml IV Q15MIN PRN PRN Reason: BG 50-70 responsive npo pt Stop: 05/29/25 10:28 Dextrose (Dextrose 50%-Water Inj 50 Ml Syringe) 50 ml IV Q15MIN PRN PRN Reason: BG <50 OR BG <70 & pt unresponsive Stop: 05/29/25 10:28 Enoxaparin Sodium (Enoxaparin Sod Inj 40 Mg/0.4 Ml Syringe) 40 mg SC QDAY HERMELINDO Stop: 05/14/25 08:59 Glucagon (Glucagon Inj 1 Mg Vial) 1 mg IM Q15MIN PRN PRN Reason: BG <70, and no IV access Lactated Ringer's (Lactated Ringers) 1,000 mls @ 20 mls/hr IV .Q24H ONE Stop: 04/30/25 05:59 Last Admin: 04/29/25 06:56 Dose: 20 mls/hr Sodium Chloride (Ns) 1,000 mls @ 125 mls/hr IV .Q8H HERMELINDO Stop: 05/29/25 12:11 Last Admin: 04/29/25 12:33 Dose: 125 mls/hr Insulin Human Regular (Insulin Hum Regular 1 Unit/0.01 Ml (Per Unit)) 0 unit SC Q6HR HERMELINDO; Protocol Stop: 05/29/25 10:44 Last Admin: 04/29/25 17:52 Dose: 2 unit Ketorolac Tromethamine (Ketorolac Inj 30 Mg/Ml Vial) 30 mg IVP Q6HR PRN PRN Reason: PAIN 1-6 (mild-mod Stop: 05/04/25 12:11 Last Admin: 04/29/25 14:54 Dose: 30 mg Morphine Sulfate (Morphine Sulf Inj 10 Mg/Ml Vial) 5 mg IVP Q4HR PRN PRN Reason: PAIN SCALE 7-10(Mod-Sev Stop: 05/04/25 12:11 Last Admin: 04/29/25 17:53 Dose: 5 mg Ondansetron HCl (Ondansetron Inj 2 Mg/Ml Inj 2 Ml) 4 mg IVP Q4HR PRN PRN Reason: NAUSEA OR VOMITING Stop: 05/29/25 12:11 Discontinued Medications Fentanyl Citrate (Fentanyl Cit Inj 50 Mcg/Ml Amp 2ml) 25 mcg IVP Q5M PRN PRN Reason: PAIN SCALE 1-3 (mild Stop: 04/29/25 10:32 Hydromorphone HCl (Hydromorphone Inj 2 Mg/Ml Vial) 0.4 mg IVP Q5M PRN PRN Reason: PAIN SCALE 7-10 (Severe Stop: 04/29/25 10:32 Acetaminophen (Ofirmev Inj) 1,000 mg in 100 mls @ 250 mls/hr IV X1 ONE Stop: 04/29/25 07:20 Last Admin: 04/29/25 07:10 Dose: 250 mls/hr Ketorolac Tromethamine (Ketorolac Inj 30 Mg/Ml Vial) 15 mg IVP X1 ONE Stop: 04/29/25 06:41 Last Admin: 04/29/25 06:56 Dose: 15 mg Morphine Sulfate (Morphine Sulf Inj 10 Mg/Ml Vial) 3 mg IVP Q5M PRN PRN Reason: PAIN SCALE 4-6 (Moderate Stop: 04/29/25 10:32 Ondansetron HCl (Ondansetron Inj 2 Mg/Ml Inj 2 Ml) 4 mg IVP X1 ONE Stop: 04/29/25 08:33 Assessment & Plan Plan 74-year-old male with past medical history of hypertension, diabetes, bladder cancer who came to [facility] for elective cholecystectomy by general surgery. Internal medicine team consulted for management of hypertension and diabetes. #Diabetes mellitus type 2 Last A1c: 8.9 (04/02/2025) ? Glargine 5 units daily ? SSI ? Hypoglycemia protocol in place #Hypertension ? Resumed home amlodipine ? Resumed home lisinopril #Chronic cholecystitis status postcholecystectomy ? General Surgery on the case Thank you for consulting internal medicine team to take care of Mr. Hooker Case discussed with my attending Dr. Bright Antoine MD PGY-1 Attending Provider Attestation/Addendum I reviewed labs, imaging, EKG, home medications and prior available records. Face to face evaluation was performed by me. I have personally examined the patient and discussed assessment and plan with the IM team. I reviewed the resident note and agree with the plan with exceptions as below. Chronic cholecystitis Type 2 diabetes mellitus on insulin Essential hypertension, uncontrolled Status post cholecystectomy done by surgery Management of pain/nausea/vomiting as needed Started insulin Lantus 6 units plus sliding scale insulin. Monitor fingersticks Resume home lisinopril. Monitor BP Outpatient follow-up with surgery Continue wound care
--- NOTE | 2025-04-29 19:17 | PC.NURSE ---
Addendum entered by Scotty Patricio RN 04/29/25 19:42: Dr. Thor Clarke switched q6 blood sugar checks to [facility]. Original Note: Pt is on a clear liquid diet and patient is on q6 blood sugar checks. MARGOT Fajardo contacted Dr. Haro if he wanted to switch patient to [facility], but Dr. Haro stated to keep patient on q6 blood sugar checks for now. Dr. Haro also stated that he put a consulation for a hospitalist.
--- NOTE | 2025-04-29 19:36 | PC.NURSE ---
Lab called saying if it is okay to draw pts. A1C lab along with the AM labs. MARGOT Fajardo okayed request.
[2025-04-30] VITALS (8 sets, daily range): BP systolic 113–141; BP diastolic 63–75; PULSE 61–88; RESP 17–20; TEMP 36.1–36.6; O2SAT 92–96
[2025-04-30] MEDS: SODIUM CHLORIDE 0.9% 1000 ML 1,000 ML 125 ML IV ×3 (04:19→22:32)
[2025-04-30] MEDS: MORPHINE SULF INJ 10 MG/ML VIAL 5 MG IVP ×4 (04:25→20:29)
[2025-04-30 06:19] LABS: Basophils % (Auto) 0 % (0-2.5); Eosinophils % (Auto) 0 % (0-10); Hematocrit 32.6 % (41.0-53.0); Hemoglobin 11.5 g/dL (13.5-16.0); Immature Granulocytes % (Auto) 1 % (0-0); Immature Granulocytes Auto 0.08 Thou/mm3 (0.00-0.00); Lymphocytes # (Auto) 1.2 Thou/mm3 (1.0-4.8); Lymphocytes % (Auto) 10 % (10-50); Mean Corpuscular HGB Conc 35.3 g/dl (31.0-37.0); Mean Corpuscular Hemoglobin 29.9 pg (25.0-35.0); Mean Corpuscular Volume 85 fL (80-100); Monocytes # (Auto) 1.1 Thou/mm3 (0.0-0.8); Monocytes % (Auto) 9 % (0-12); Neutrophils % (Auto) 81 % (37-80); Nucleated Red Blood Cell % 0 /100 WBC (0); Platelet Count 258 Thou/mm3 (140-440); RDW Standard Deviation 39.7 fL (35.1-43.9); Red Blood Count 3.85 Miln/mm3 (4.50-5.90); White Blood Count 12.4 Thou/mm3 (3.8-10.6)
[2025-04-30 06:38] LABS: Alanine Aminotransferase 24 U/L (10-49); Albumin, Serum 3.5 gm/dL (3.4-4.8); Alkaline Phosphatase 62 U/L (46-116); Bilirubin,Direct 0.1 mg/dL (0.0-0.3); Bilirubin,Total 0.4 mg/dL (0.3-1.2); Total Protein 5.6 gm/dL (5.7-8.2)
[2025-04-30 06:48] LABS: Glucose Estimated Average 197 mg/dL (80-131); Hemoglobin A1C 8.5 % Hgb (4.8-6.0)
[2025-04-30] MEDS: INSULIN LISPRO (AdmeLOG) 1 UNIT/0.01 ML UNIT SC ×2 (07:30→11:17)
[2025-04-30] MEDS: ENOXAPARIN SOD INJ 40 MG/0.4 ML SYRINGE SC (09:07)
[2025-04-30] MEDS: INSULIN GLARGINE (Lantus) 5 UNIT/0.05 ML (PER 5 UNITS) SC (09:07)
[2025-04-30] MEDS: amLODIPine BESYLATE 5 MG TABLET PO (09:08)
[2025-04-30] MEDS: Lisinopril 20 MG TABLET 40 MG PO (09:08)
--- NOTE | 2025-04-30 10:12 | PC.SS ---
Initial assessment: patient is a 74-year old male admitted for open paola. Patient is Mongolian speaking. Patient was able to confirm demographic information. Patient assigned his , Maria Elena as his emergency contact. Patient informs he resides at home with and reports to be independent with ADL's. Patient denies home DME use. Patient followed by Edmond Harris for primary care. Preferred pharmacy is [facility] in [place]. Patient plans to return home upon discharge, informs his family can transport him home. No needs identified at this time. Patient provided with community resource handout. D/c plan: home Next of kin: Maria Elena
--- NOTE | 2025-04-30 11:00 | ESPR_ITS ---
Documentation for date of: 04/30/25 Subjective Subjective Interval history: No acute overnight events. BP is controlled, insulin long acting was restarted, BS is well controled, Vitals stable Pain is managed General surgery is on board Exam Vital Signs Temp Pulse Resp BP Pulse Ox O2 Del Method O2 Flow Rate 97.2 F 65 17 123/63 94 L Nasal Cannula 2 04/30/25 07:57 04/30/25 09:08 04/30/25 07:57 04/30/25 09:08 04/30/25 07:57 04/30/25 07:57 04/30/25 07:57 Narrative Exam GENERAL: no acute distress, AAO x3, well nourished. HEENT: Head AT/ NC. Mucous membranes moist. PERRL. NECK: Supple, no lymphadenopathy, no carotid bruits. CARDIOVASCULAR: RRR. Normal S1/S2, No m/r/g. No pitting edema of bilateral LEs. RESPIRATORY: CTAB. No wheezing, rhonchi, crackles. GASTROINTESTINAL: Abdomen soft, non tender no palpable masses. Bowel sounds present in all 4 quadrants.Surgical scar is noted, dressing is clean and dry MUSCULOSKELETAL:? No cyanosis or edema, no visible joint swelling. NEUROLOGICAL: CN II-XII grossly intact. No focal deficits. Sensation intact, symmetric. PSYCHIATRIC: Awake and alert, not agitated, normal mood and affect. INTEGUMENTARY: No obvious rashes, no jaundice, normal turgor. Objective Labs 04/30/25 05:59 04/25/25 12:27 Labs: Laboratory Results - last 24 hr 04/30/25 05:59 WBC 12.4 H D RBC 3.85 L Hgb 11.5 L D Hct 32.6 L MCV 85 MCH 29.9 MCHC 35.3 RDW Std Deviation 39.7 Plt Count 258 D Neut % (Auto) 81 H Lymph % (Auto) 10 [place] % (Auto) 9 Eos % (Auto) 0 Baso % (Auto) 0 Neut # (Auto) 10.0 H Lymph # (Auto) 1.2 [place] # (Auto) 1.1 H Eos # (Auto) 0.0 Baso # (Auto) 0.0 Immature Gran # (Auto) 0.08 H Absolute Nucleated RBC 0.00 Immature Gran % 1 H Nucleated RBC % [address] Glu mg/dL 197 H Hemoglobin A1c 8.5 H Total Bilirubin 0.4 Direct Bilirubin 0.1 ALT 24 Alkaline Phosphatase 62 Total Protein 5.6 L Albumin 3.5 Quality Measures Quality Measures VTE prophylaxis Advance care planning discussed with:: patient Assessment & Plan Assessment Current Active Medications: Generic Name Dose Route Start Last Admin Trade Name Freq PRN Reason Stop Dose Admin Acetaminophen 650 mg 04/29/25 12:12 Acetaminophen 325 Mg Tablet PO 05/29/25 12:11 Q6HR PRN [id number] Amlodipine Besylate 5 mg 04/30/25 09:00 04/30/25 09:08 Amlodipine Besylate 5 Mg Tablet PO 05/30/25 08:59 5 mg DAILY HERMELINDO Administration Dextrose 25 ml 04/29/25 19:25 Dextrose 50%-Water Inj 50 Ml Syringe IV 05/29/25 19:24 Q15MIN PRN BG 50-70 responsive npo pt Dextrose 50 ml 04/29/25 19:25 Dextrose 50%-Water Inj 50 Ml Syringe IV 05/29/25 19:24 Q15MIN PRN BG <50 OR BG <70 & pt unresponsive Enoxaparin Sodium 40 mg 04/30/25 09:00 04/30/25 09:07 Enoxaparin Sod Inj 40 Mg/0.4 Ml Syringe SC 05/14/25 08:59 40 mg QDAY HERMELINDO Administration Glucagon 1 mg 04/29/25 19:25 Glucagon Inj 1 Mg Vial IM Q15MIN PRN BG <70, and no IV access Sodium Chloride 1,000 mls @ 125 mls/hr 04/29/25 12:12 04/30/25 04:19 Ns IV 05/29/25 12:11 125 mls/hr .Q8H HERMELINDO Administration Insulin Glargine 5 unit 04/30/25 09:00 04/30/25 09:07 Insulin Glargine (Lantus) 5 Unit/0.05 Ml (Per 5 Units) SC 05/30/25 08:59 5 unit QDAY HERMELINDO Administration Insulin Human Lispro 0 unit 04/30/25 07:30 04/30/25 07:30 Insulin Lispro (Admelog) 1 Unit/0.01 Ml Unit SC 05/30/25 07:29 1 unit AC HERMELINDO Administration Protocol Ketorolac Tromethamine 30 mg 04/29/25 12:12 04/29/25 14:54 Ketorolac Inj 30 Mg/Ml Vial IVP 05/04/25 12:11 30 mg Q6HR PRN Administration PAIN 1-6 (mild-mod Lisinopril 40 mg 04/30/25 09:00 04/30/25 09:08 Lisinopril 20 Mg Tablet PO 05/30/25 08:59 40 mg DAILY HERMELINDO Administration Morphine Sulfate 5 mg 04/29/25 12:12 04/30/25 10:53 Morphine Sulf Inj 10 Mg/Ml Vial IVP 05/04/25 12:11 5 mg Q4HR PRN Administration PAIN SCALE 7-10(Mod-Sev Ondansetron HCl 4 mg 04/29/25 12:12 Ondansetron Inj 2 Mg/Ml Inj 2 Ml IVP 05/29/25 12:11 Q4HR PRN NAUSEA OR VOMITING Plan 74-year-old male with past medical history of hypertension, diabetes, bladder cancer who came to [facility] for elective cholecystectomy by general surgery. Internal medicine team consulted for management of hypertension and diabetes. #Diabetes mellitus type 2 Last A1c: 8.9 (04/02/2025) ? Glargine 5 units daily ? SSI ? Hypoglycemia protocol in place #Hypertension ? Continue amlodipine ? Continue home lisinopril - Home Losartan was DC, patient was on both Losartan and Lisinoprilat home . He will need to continue with only one LONA/ARB. #Chronic cholecystitis status postcholecystectomy post opd #2 ? managed by General Surgery Thank you for consulting internal medicine team to take care of Mr. Hooker Patient care was discussed with attending physician Dr. Ranulfo West MD PGY-2 I have carefully reviewed this document. Due to imperfections in the voice software, there could be grammatical errors including phonetic/typographic errors. This in no way compromises the medical care the patient is receiving Attending Provider Attestation/Addendum I have examined the patient, reviewed labs and imaging findings, discussed the case with the resident(s), and reviewed entered orders. I agree with the plan of care as outlined in this note, with these additional summaries/recommendations: Patient seen at bedside. No acute overnight events. Patient seen tolerating clear liquid diet. He reports he is passing gas. Blood pressure relatively at goal trending with systolic blood pressure in the 130s. Continue home Norvasc and lisinopril. Continue basal and bolus insulin for diabetes mellitus type 2 with Accu-Cheks. Target blood sugar of 140-180 while hospitalized. Continue as needed pain management and encouraged patient to ambulate as tolerated. Thank you for allowing us to participate in this patient's care and we will continue to follow the patient with you. Dr. Ranulfo MD
--- NOTE | 2025-04-30 12:48 | PD.SURPROG ---
Documentation for date of: 04/30/25 Subjective Subjective Narrative: Patient is still complaining of significant pain over the incision. His vital signs are stable. He is requiring continued narcotics for pain relief. He is passing flatus Exam Vital Signs Temp Pulse Resp BP Pulse Ox O2 Del Method O2 Flow Rate 97.2 F 84 17 137/70 H 94 L Nasal Cannula 2 04/30/25 12:00 04/30/25 12:00 04/30/25 12:00 04/30/25 12:00 04/30/25 12:00 04/30/25 12:00 04/30/25 12:00 His vital signs are normal Routine Abdominal Exam Comments: Abdominal examination shows active bowel sounds Results Results: Laboratory Laboratory Narrative: Laboratory results are within normal limits Assessment & Plan Assessment Additional comments: Impression: Stable postoperative course with poor pain control Plan Plan: We shall continue narcotics and encourage activity. We shall advance his diet Procedures Procedures Open cholecystectomy
--- NOTE | 2025-04-30 14:49 | PC.SS ---
Rounding note: medical team following Dr. Haro's patient. Consultation for diabetes and high blood pressure. D/c plan is to return home.
[2025-05-01] VITALS (8 sets, daily range): BP systolic 103–158; BP diastolic 62–83; PULSE 66–86; RESP 16–92; TEMP 36.4–36.7; O2SAT 92–95
[2025-05-01] MEDS: MORPHINE SULF INJ 10 MG/ML VIAL 5 MG IVP ×2 (00:19→06:23)
[2025-05-01] MEDS: SODIUM CHLORIDE 0.9% 1000 ML 1,000 ML 125 ML IV (06:24)
[2025-05-01] MEDS: amLODIPine BESYLATE 5 MG TABLET PO (08:06)
[2025-05-01] MEDS: ENOXAPARIN SOD INJ 40 MG/0.4 ML SYRINGE SC (08:06)
[2025-05-01] MEDS: Lisinopril 20 MG TABLET 40 MG PO (08:06)
[2025-05-01] MEDS: INSULIN GLARGINE (Lantus) 5 UNIT/0.05 ML (PER 5 UNITS) SC (08:07)
[2025-05-01 08:52] LABS: Basophils % (Auto) 0 % (0-2.5); Eosinophils # (Auto) 0.5 Thou/mm3 (0.0-0.5); Eosinophils % (Auto) 5 % (0-10); Hematocrit 36.7 % (41.0-53.0); Hemoglobin 12.4 g/dL (13.5-16.0); Immature Granulocytes % (Auto) 0 % (0-0); Immature Granulocytes Auto 0.03 Thou/mm3 (0.00-0.00); Lymphocytes # (Auto) 1.6 Thou/mm3 (1.0-4.8); Lymphocytes % (Auto) 18 % (10-50); Mean Corpuscular HGB Conc 33.8 g/dl (31.0-37.0); Mean Corpuscular Volume 89 fL (80-100); Monocytes # (Auto) 0.7 Thou/mm3 (0.0-0.8); Monocytes % (Auto) 8 % (0-12); Neutrophils # (Auto) 5.8 Thou/mm3 (1.8-7.7); Neutrophils % (Auto) 68 % (37-80); Nucleated Red Blood Cell % 0 /100 WBC (0); Platelet Count 243 Thou/mm3 (140-440); RDW Standard Deviation 43.1 fL (35.1-43.9); Red Blood Count 4.14 Miln/mm3 (4.50-5.90); White Blood Count 8.6 Thou/mm3 (3.8-10.6)
[2025-05-01 09:08] LABS: Alanine Aminotransferase 16 U/L (10-49); Albumin, Serum 3.7 gm/dL (3.4-4.8); Albumin/Globulin Ratio 1.5 (1.2-2.2); Alkaline Phosphatase 69 U/L (46-116); Anion Gap 10 (7-16); BUN/Creatinine Ratio 12 Ratio (12-20); Bilirubin,Total 0.4 mg/dL (0.3-1.2); Blood Urea Nitrogen 12 mg/dL (9-23); Calcium 8.4 mg/dL (8.3-10.6); Calcium (Corrected) 8.6 mg/dL (8.5-10.1); Carbon Dioxide 22.8 mMol/L (20.0-31.0); Chloride 111 mMol/L (98-107); Globulin 2.4 gm/dL (2.3-3.5); Glucose 160 mg/dL (74-106); Osmolality,Calculated 289 (275-295); Potassium 3.7 mMol/L (3.4-5.1); Sodium 144 mMol/L (136-145); Total Protein 6.1 gm/dL (5.7-8.2); eGFR > 60 See Note
--- NOTE | 2025-05-01 09:50 | PC.NURSE ---
Dr. Haro at bedside POC discussed with patient.
[2025-05-01] MEDS: KETOROLAC INJ 30 MG/ML VIAL IVP ×2 (11:03→18:43)
[2025-05-01] MEDS: INSULIN LISPRO (AdmeLOG) 1 UNIT/0.01 ML UNIT SC ×2 (11:30→16:26)
--- NOTE | 2025-05-01 14:08 | ESPR_ITS ---
Documentation for date of: 05/01/25 Subjective Subjective Interval history: Patient was seen and examined at bedside. No acute overnight events. Labs reviewed, no leukocytosis, CMP normal, grossly stable, blood pressure stable 140s over 70s,. Patient still complaining of mild abdominal pain, which is managed with morphine. From our standpoint patient blood pressure and glucose is well-managed, was at bedside, and was closely explained in detail. Will continue with lisinopril 40 daily and continue the same regimen for BS control. Exam Vital Signs Temp Pulse Resp BP Pulse Ox O2 Del Method O2 Flow Rate 97.9 F 75 18 158/82 H 93 L Nasal Cannula 2 05/01/25 08:00 05/01/25 08:06 05/01/25 08:00 05/01/25 08:06 05/01/25 08:00 05/01/25 08:00 05/01/25 08:00 Narrative Exam GENERAL: no acute distress, AAO x3, well nourished. HEENT: Head AT/ NC. Mucous membranes moist. PERRL. NECK: Supple, no lymphadenopathy, no carotid bruits. CARDIOVASCULAR: RRR. Normal S1/S2, No m/r/g. No pitting edema of bilateral LEs. RESPIRATORY: CTAB. No wheezing, rhonchi, crackles. GASTROINTESTINAL: Abdomen soft, non tender no palpable masses. Bowel sounds present in all 4 quadrants.Surgical scar is noted, dressing is clean and dry MUSCULOSKELETAL:? No cyanosis or edema, no visible joint swelling. NEUROLOGICAL: CN II-XII grossly intact. No focal deficits. Sensation intact, symmetric. PSYCHIATRIC: Awake and alert, not agitated, normal mood and affect. INTEGUMENTARY: No obvious rashes, no jaundice, normal turgor. Objective Labs 05/02/25 04:43 05/02/25 04:43 Labs: Laboratory Results - last 24 hr 05/01/25 08:18 WBC 8.6 RBC 4.14 L Hgb 12.4 L Hct 36.7 L MCV 89 MCH 30.0 MCHC 33.8 RDW Std Deviation 43.1 Plt Count 243 Neut % (Auto) 68 Lymph % (Auto) 18 [place] % (Auto) 8 Eos % (Auto) 5 Baso % (Auto) 0 Neut # (Auto) 5.8 Lymph # (Auto) 1.6 [place] # (Auto) 0.7 Eos # (Auto) 0.5 Baso # (Auto) 0.0 Immature Gran # (Auto) 0.03 H Absolute Nucleated RBC 0.00 Immature Gran % 0 Nucleated RBC % 0 Sodium 144 Potassium 3.7 Chloride 111 H Carbon Dioxide 22.8 Anion Gap 10 BUN 12 Creatinine 1.0 Estim Creat Clear Calc 67.0 eGFR > 60 BUN/Creatinine Ratio 12 Glucose 160 H Calculated Osmolality 289 Calcium 8.4 Corrected Calcium 8.6 Total Bilirubin 0.4 ALT 16 Alkaline Phosphatase 69 Total Protein 6.1 Albumin 3.7 Globulin 2.4 Albumin/Globulin Ratio 1.5 Quality Measures Quality Measures VTE prophylaxis Advance care planning discussed with:: patient Assessment & Plan Assessment Current Active Medications: Generic Name Dose Route Start Last Admin Trade Name Freq PRN Reason Stop Dose Admin Acetaminophen 650 mg 04/29/25 12:12 Acetaminophen 325 Mg Tablet PO 05/29/25 12:11 Q6HR PRN [id number] Amlodipine Besylate 5 mg 04/30/25 09:00 05/01/25 08:06 Amlodipine Besylate 5 Mg Tablet PO 05/30/25 08:59 5 mg DAILY HERMELINDO Administration Dextrose 25 ml 04/29/25 19:25 Dextrose 50%-Water Inj 50 Ml Syringe IV 05/29/25 19:24 Q15MIN PRN BG 50-70 responsive npo pt Dextrose 50 ml 04/29/25 19:25 Dextrose 50%-Water Inj 50 Ml Syringe IV 05/29/25 19:24 Q15MIN PRN BG <50 OR BG <70 & pt unresponsive Enoxaparin Sodium 40 mg 04/30/25 09:00 05/01/25 08:06 Enoxaparin Sod Inj 40 Mg/0.4 Ml Syringe SC 05/14/25 08:59 40 mg QDAY HERMELINDO Administration Glucagon 1 mg 04/29/25 19:25 Glucagon Inj 1 Mg Vial IM Q15MIN PRN BG <70, and no IV access Sodium Chloride 1,000 mls @ 50 mls/hr 05/01/25 10:53 05/01/25 10:58 Ns IV 05/31/25 10:52 Not Given .Q20H HERMELINDO Insulin Glargine 5 unit 04/30/25 09:00 05/01/25 08:07 Insulin Glargine (Lantus) 5 Unit/0.05 Ml (Per 5 Units) SC 05/30/25 08:59 5 unit QDAY HERMELINDO Administration Insulin Human Lispro 0 unit 04/30/25 07:30 05/01/25 11:30 Insulin Lispro (Admelog) 1 Unit/0.01 Ml Unit SC 05/30/25 07:29 1 unit AC HERMELINDO Administration Protocol Ketorolac Tromethamine 30 mg 04/29/25 12:12 05/01/25 11:03 Ketorolac Inj 30 Mg/Ml Vial IVP 05/04/25 12:11 30 mg Q6HR PRN Administration PAIN 1-6 (mild-mod Lisinopril 40 mg 04/30/25 09:00 05/01/25 08:06 Lisinopril 20 Mg Tablet PO 05/30/25 08:59 40 mg DAILY HERMELINDO Administration Morphine Sulfate 5 mg 04/29/25 12:12 05/01/25 06:23 Morphine Sulf Inj 10 Mg/Ml Vial IVP 05/04/25 12:11 5 mg Q4HR PRN Administration PAIN SCALE 7-10(Mod-Sev Ondansetron HCl 4 mg 04/29/25 12:12 Ondansetron Inj 2 Mg/Ml Inj 2 Ml IVP 05/29/25 12:11 Q4HR PRN NAUSEA OR VOMITING Plan 74-year-old male with past medical history of hypertension, diabetes, bladder cancer who came to [facility] for elective cholecystectomy by general surgery. Internal medicine team consulted for management of hypertension and diabetes. #Diabetes mellitus type 2 Last A1c: 8.9 (04/02/2025) ? Glargine 5 units daily ? SSI ? Hypoglycemia protocol in place #Hypertension ? Continue amlodipine ? Continue home lisinopril - Home Losartan was DC, patient was on both Losartan and Lisinoprilat home . He will need to continue with only one LONA/ARB. #Chronic cholecystitis status postcholecystectomy post opd #2 ? managed by General Surgery Thank you for consulting internal medicine team to take care of Mr. Hooker Patient care was discussed with attending physician Dr. Ranulfo West MD PGY-2 I have carefully reviewed this document. Due to imperfections in the voice software, there could be grammatical errors including phonetic/typographic errors. This in no way compromises the medical care the patient is receiving Attending Provider Attestation/Addendum I have examined the patient, reviewed labs and imaging findings, discussed the case with the resident(s), and reviewed entered orders. I agree with the plan of care as outlined in this note, with these additional summaries/recommendations: Patient seen at bedside. No acute overnight events. Patient seen tolerating diabetic diet. He reports he is passing gas but has not yet had a BM. Blood pressure relatively at goal trending with systolic blood pressure in the 130s. Continue home Norvasc and lisinopril. Continue basal and bolus insulin for diabetes mellitus type 2 with Accu-Cheks. Target blood sugar of 140-180 while hospitalized. Continue as needed pain management and encouraged patient to ambulate as tolerated. Thank you for allowing us to participate in this patient's care and we will continue to follow the patient with you. Dr. Ranulfo MD
--- NOTE | 2025-05-01 15:05 | PC.NURSE ---
Gave Dr. Haro update, patient passing gas, tolerated lunch, and pain is managed. Patient increase ambulation. Orders received, read back and carried out.
[2025-05-01] MEDS: HYDROcodone/APAP 5/325 TABLET 1 TAB PO (15:33)
--- NOTE | 2025-05-01 15:57 | PD.SURPROG ---
Documentation for date of: 05/01/25 Subjective Subjective Narrative: Patient is complaining of abdominal distention and is not passing much flatus. He is using considerable amount of pain medication because of the subcostal incision. Exam Vital Signs Temp Pulse Resp BP Pulse Ox O2 Del Method O2 Flow Rate 98.1 F 66 16 138/62 H 92 L Nasal Cannula 2 05/01/25 12:00 05/01/25 12:00 05/01/25 12:05/01/25 12:05/01/25 12:05/01/25 12:05/01/25 12:00 His vital signs are normal Routine Abdominal Exam Comments: Abdomen revealed good breath sounds on auscultation Assessment & Plan Assessment Additional comments: Pression: Stable recovery following open cholecystectomy Plan Plan: We shall wait for him to tolerate diet adequately before discharging him. Patient also needs pain medication and is not able to go home today. We will try to wean him off pain medication and plan discharge tomorrow. Procedures Procedures Open cholecystectomy
[2025-05-02] VITALS: BP 127/61; PULSE 74; RESP 16; TEMP 36.6; O2SAT 92
[2025-05-02 04:00] VITALS: BP 120/63; PULSE 78; RESP 17; TEMP 36.6; O2SAT 96
[2025-05-02 05:42] LABS: Basophils % (Auto) 0 % (0-2.5); Eosinophils # (Auto) 0.5 Thou/mm3 (0.0-0.5); Eosinophils % (Auto) 6 % (0-10); Hematocrit 33.5 % (41.0-53.0); Hemoglobin 11.6 g/dL (13.5-16.0); Immature Granulocytes % (Auto) 0 % (0-0); Immature Granulocytes Auto 0.03 Thou/mm3 (0.00-0.00); Lymphocytes # (Auto) 1.3 Thou/mm3 (1.0-4.8); Lymphocytes % (Auto) 16 % (10-50); Mean Corpuscular HGB Conc 34.6 g/dl (31.0-37.0); Mean Corpuscular Hemoglobin 30.1 pg (25.0-35.0); Mean Corpuscular Volume 87 fL (80-100); Monocytes # (Auto) 0.6 Thou/mm3 (0.0-0.8); Monocytes % (Auto) 8 % (0-12); Neutrophils # (Auto) 5.5 Thou/mm3 (1.8-7.7); Neutrophils % (Auto) 69 % (37-80); Nucleated Red Blood Cell % 0 /100 WBC (0); Platelet Count 239 Thou/mm3 (140-440); RDW Standard Deviation 41.4 fL (35.1-43.9); Red Blood Count 3.85 Miln/mm3 (4.50-5.90); White Blood Count 7.9 Thou/mm3 (3.8-10.6)
[2025-05-02 06:22] LABS: Anion Gap 12 (7-16); Carbon Dioxide 21.5 mMol/L (20.0-31.0); Chloride 110 mMol/L (98-107); Potassium 3.8 mMol/L (3.4-5.1); Sodium 143 mMol/L (136-145)
[2025-05-02 06:26] VITALS: PULSE 88; RESP 20; RESP 92
[2025-05-02] MEDS: HYDROcodone/APAP 5/325 TABLET 1 TAB PO (07:30)
[2025-05-02 07:59] VITALS: BP 154/64; PULSE 86; RESP 15; TEMP 36.8; O2SAT 94
[2025-05-02 08:00] VITALS: BP 154/64; PULSE 86
[2025-05-02] MEDS: amLODIPine BESYLATE 5 MG TABLET PO (08:00)
[2025-05-02] MEDS: INSULIN GLARGINE (Lantus) 5 UNIT/0.05 ML (PER 5 UNITS) SC (08:00)
[2025-05-02] MEDS: ENOXAPARIN SOD INJ 40 MG/0.4 ML SYRINGE SC (08:00)
[2025-05-02] MEDS: Lisinopril 20 MG TABLET 40 MG PO (08:00)
--- NOTE | 2025-05-02 10:29 | ESPR_ITS ---
Documentation for date of: 05/02/25 Subjective Subjective Interval history: Patient was seen and examined at bedside. No acute overnight events. Patient denies any nausea, vomiting, passing gas, tolerating diet well, work with physical therapy Blood pressure is well-controlled with lisinopril and amlodipine Blood sugar is under control with subcu insulin All the discharge instruction was given to the patient and discussed with surgery Family was at bedside, all questions and concerns were addressed. Patient gave verbalized understanding. Our team will sign off the case. Exam Vital Signs Temp Pulse Resp BP Pulse Ox O2 Del Method O2 Flow Rate 98.2 F 86 15 154/64 H 94 L Room Air 2 05/02/25 07:59 05/02/25 08:00 05/02/25 07:59 05/02/25 08:00 05/02/25 07:59 05/02/25 07:59 05/01/25 12:00 Narrative Exam GENERAL: no acute distress, AAO x3, well nourished. HEENT: Head AT/ NC. Mucous membranes moist. PERRL. NECK: Supple, no lymphadenopathy, no carotid bruits. CARDIOVASCULAR: RRR. Normal S1/S2, No m/r/g. No pitting edema of bilateral LEs. RESPIRATORY: CTAB. No wheezing, rhonchi, crackles. GASTROINTESTINAL: Abdomen soft, non tender no palpable masses. Bowel sounds present in all 4 quadrants.Surgical scar is noted, dressing is clean and dry MUSCULOSKELETAL:? No cyanosis or edema, no visible joint swelling. NEUROLOGICAL: CN II-XII grossly intact. No focal deficits. Sensation intact, symmetric. PSYCHIATRIC: Awake and alert, not agitated, normal mood and affect. INTEGUMENTARY: No obvious rashes, no jaundice, normal turgor. Objective Labs 05/02/25 04:43 05/02/25 04:43 Labs: Laboratory Results - last 24 hr 05/02/25 04:43 WBC 7.9 RBC 3.85 L Hgb 11.6 L Hct 33.5 L MCV 87 MCH 30.1 MCHC 34.6 RDW Std Deviation 41.4 Plt Count 239 Neut % (Auto) 69 Lymph % (Auto) 16 [place] % (Auto) 8 Eos % (Auto) 6 Baso % (Auto) 0 Neut # (Auto) 5.5 Lymph # (Auto) 1.3 [place] # (Auto) 0.6 Eos # (Auto) 0.5 Baso # (Auto) 0.0 Immature Gran # (Auto) 0.03 H Absolute Nucleated RBC 0.00 Immature Gran % 0 Nucleated RBC % 0 Sodium 143 Potassium 3.8 Chloride 110 H Carbon Dioxide 21.5 Anion Gap 12 Quality Measures Quality Measures VTE prophylaxis Advance care planning discussed with:: patient Assessment & Plan Assessment Current Active Medications: Generic Name Dose Route Start Last Admin Trade Name Freq PRN Reason Stop Dose Admin Acetaminophen 650 mg 04/29/25 12:12 Acetaminophen 325 Mg Tablet PO 05/29/25 12:11 Q6HR PRN [id number] Hydrocodone Bitart/Acetaminophen 1 tab 05/01/25 15:02 05/02/25 07:30 Hydrocodone/Apap 5/325 Tablet PO 05/06/25 15:00 1 tab Q4HR PRN Administration PAIN 1-6 (mild-mod Amlodipine Besylate 5 mg 04/30/25 09:00 05/02/25 08:00 Amlodipine Besylate 5 Mg Tablet PO 05/30/25 08:59 5 mg DAILY HERMELINDO Administration Dextrose 25 ml 04/29/25 19:25 Dextrose 50%-Water Inj 50 Ml Syringe IV 05/29/25 19:24 Q15MIN PRN BG 50-70 responsive npo pt Dextrose 50 ml 04/29/25 19:25 Dextrose 50%-Water Inj 50 Ml Syringe IV 05/29/25 19:24 Q15MIN PRN BG <50 OR BG <70 & pt unresponsive Enoxaparin Sodium 40 mg 04/30/25 09:00 05/02/25 08:00 Enoxaparin Sod Inj 40 Mg/0.4 Ml Syringe SC 05/14/25 08:59 40 mg QDAY HERMELINDO Administration Glucagon 1 mg 04/29/25 19:25 Glucagon Inj 1 Mg Vial IM Q15MIN PRN BG <70, and no IV access Hydralazine HCl 10 mg 05/01/25 16:25 Hydralazine Inj 20 Mg/Ml Vial IV 05/31/25 16:29 Q6H PRN hypertension Insulin Glargine 5 unit 04/30/25 09:00 05/02/25 08:00 Insulin Glargine (Lantus) 5 Unit/0.05 Ml (Per 5 Units) SC 05/30/25 08:59 5 unit QDAY HERMELINDO Administration Insulin Human Lispro 0 unit 04/30/25 07:30 05/02/25 07:16 Insulin Lispro (Admelog) 1 Unit/0.01 Ml Unit SC 05/30/25 07:29 Not Given AC [facility] Protocol Ketorolac Tromethamine 30 mg 05/01/25 15:02 05/01/25 18:43 Ketorolac Inj 30 Mg/Ml Vial IVP 05/04/25 12:11 30 mg Q6HR PRN Administration Breakthrough Pain 1-10 Lisinopril 40 mg 04/30/25 09:00 05/02/25 08:00 Lisinopril 20 Mg Tablet PO 05/30/25 08:59 40 mg DAILY HERMELINDO Administration Ondansetron HCl 4 mg 04/29/25 12:12 Ondansetron Inj 2 Mg/Ml Inj 2 Ml IVP 05/29/25 12:11 Q4HR PRN NAUSEA OR VOMITING Plan 74-year-old male with past medical history of hypertension, diabetes, bladder cancer who came to [facility] for elective cholecystectomy by general surgery. Internal medicine team consulted for management of hypertension and diabetes. #Diabetes mellitus type 2 - Continue home Lantus 6 units subcu at along place sitagliptin 100 mg daily -Discharge recommendations was placed and discussed with general surgery #Hypertension ? Continue amlodipine ? Continue home lisinopril - Home Losartan was DC, patient was on both Losartan and Lisinopril at home . He will continue with only one LONA/ARB. - Discharge recommendations was discussed with the patient, family and general surgery - All the instructions were given and explained in details #Chronic cholecystitis status postcholecystectomy post opd #2 ? managed by General Surgery Thank you for consulting internal medicine team to take care of Mr. Hooker. We will sign off the case Patient care was discussed with attending physician Dr. Ranulfo West MD PGY-2 I have carefully reviewed this document. Due to imperfections in the voice software, there could be grammatical errors including phonetic/typographic errors. This in no way compromises the medical care the patient is receiving Attending Provider Attestation/Addendum I have examined the patient, reviewed labs and imaging findings, discussed the case with the resident(s), and reviewed entered orders. I agree with the plan of care as outlined in this note. Dr. Ranulfo MD
--- NOTE | 2025-05-02 10:41 | PC.NURSE ---
patient waiting for his ride.
--- NOTE | 2025-05-02 10:58 | PC.NURSE ---
Patient c/o dizziness after sitting down, vital signs: BP 143/69, HR 71, O2 94% RA, BS 161. Dr. Roldan made aware.
[2025-05-02] MEDS: INSULIN LISPRO (AdmeLOG) 1 UNIT/0.01 ML UNIT SC (11:23)
--- NOTE | 2025-05-02 16:52 | ESDS_ITS ---
RE: DEENA ESTRADA : 1950 DATE OF ADMISSION: 04/29/2025 DATE OF DISCHARGE: 05/02/2025 11:29 DATE OF ADMISSION: 04/29/2025 DATE OF DISCHARGE: 05/02/2025 FINAL DIAGNOSIS: Calculus of the gallbladder. PROCEDURE DONE: Open cholecystectomy. REASON FOR ADMISSION: This patient is scheduled for open cholecystectomy because of the multiple surgeries in the abdomen in the past. He was found to have symptomatic cholelithiasis. He was taken to the operating room on 04/29/2025 and underwent open cholecystectomy. His postoperative course was uneventful and he was kept in the hospital for pain control. On the third postoperative day, he was discharged. At the time of discharge, he was getting a regular diet and having bowel movements and was pain-free. He was given Vicodin for pain and I will be seeing him next week in my office for further followup. DT: 14:11:14 TT: 16:50:00 Ref: [id number] - TID: [id number]
== END 2025-05-02 11:29 | disposition home or self-care (01) | DRG 416 ==
LOC: S2W1 06:55 → S3NX 12:06
PROVIDERS: Student in an Organized Health Care Education/Training Program; Admitting Provider Surgery; PCP Family Medicine; Visit Provider Student in an Organized Health Care Education/Training Program
PROC: 0FT40ZZ Resection of Gallbladder, Open Approach (ICD-10-PCS; CPT 47600; principal; 2025-04-29 08:00)
DX: K80.10 Calculus of gallbladder with chronic cholecystitis without obstruction (principal); K66.0 Peritoneal adhesions (postprocedural) (postinfection); I10 Essential (primary) hypertension; E11.9 Type 2 diabetes mellitus without complications; Z79.4 Long term (current) use of insulin; Z85.51 Personal history of malignant neoplasm of bladder; Z88.8 Allergy status to other drugs, medicaments and biological substances
CPT/HCPCS: 36415; 80051; 80053; 80076; 83036; 85025; 85610; 85730; A4217; A4649; J0131; J0690; J1100; J1171; J1650; J1815; J1885; J2270; J2405; J2704; J3010; J3490; J7030; J7120; A9270

== ENCOUNTER → 2025-05-30 | Outpatient (BNVA) | payer OTHER, MEDICAID, SELFPAY | END | disposition home or self-care (01) | PROVIDERS: PCP Family Medicine; Referring Provider Family Medicine; Visit Provider Urology | DX: N28.89 Other specified disorders of kidney and ureter (principal); D09.0 Carcinoma in situ of bladder; C61 Malignant neoplasm of prostate | CPT/HCPCS: 99212; G0463 ==

== ENCOUNTER 2025-06-07 08:36 | Emergency (ER) | payer OTHER, MEDICAID, SELFPAY ==
[2025-06-07 09:03] VITALS: BP 148/73; PULSE 94; RESP 19; TEMP 37.3; O2SAT 95; BMI 25.7
--- NOTE | 2025-06-07 09:12 | XR_ITS ---
Examination: CT abdomen with intravenous contrast CT pelvis with intravenous contrast 2-D coronal reconstructions 2-D sagittal reconstructions Date and time of exam:The 2024, 12:02 PM Indications: Status post recent cholecystectomy with abdominal pain. CTDI: vol (mGy) 6.9. DLP: (mGycm) 401. Technique: Multiple axial sections of the abdomen and pelvis have been obtained. 64 slice high-resolution scanner used. 3 mm axial sections have been obtained, post intravenous injection cc Isovue-370. 2-D sagittal, coronal reconstructions obtained. Low dose protocols were performed. One or more of the following dose reduction techniques were used; automated exposure control, adjustment of the mA and/or KV according to patient size, use of iterative reconstruction technique. Findings: No focal liver lesions. 38 x 16 mm fluid collection with air density in the gallbladder fossa consistent with abscess No hydronephrosis, diverting urostomy Heavy abdominal aortic calcification No bowel obstruction. Normal appendix Wall thickening and inflammatory change involving sigmoid colon diverticula No pelvic abscess Advanced disc narrowing L5-S1 Impression: Abscess in the gallbladder fossa, amenable to CT-guided percutaneous catheter drainage Acute diverticulitis No pelvic abscess
--- NOTE | 2025-06-07 09:12 | EKG_ITS ---
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: : 1950 Requested By: Jessica Sorto ([facility]) [place] Order Number: [id number] Reading MD: Jessica Sorto ([facility]) Kwabena Measurements Intervals [place] Rate: 95 P: 29 CA: 141 QRS: 12 QRSD: 87 T: 218 QT: 372 QTc: 470 Interpretive Statements SINUS RHYTHM POSSIBLE LEFT ATRIAL ENLARGEMENT [-0.1mV P-WAVE IN V1/V2] ST DEVIATION AND MODERATE T-WAVE ABNORMALITY, CONSIDER ANTEROLATERAL ISCHEMIA [-0.1+ mV T-WAVE IN V3-V6] ST DEVIATION AND MODERATE T-WAVE ABNORMALITY, CONSIDER INFERIOR ISCHEMIA [-0.1+ mV T-WAVE IN II/aVF] Compared to ECG 04/05/2025 01:35:57 Sinus bradycardia no longer present Short CA interval no longer present T-wave abnormality still present Possible ischemia still present /store/S0/[id number]/ecg/[id number].pdf
--- NOTE | 2025-06-07 09:13 | PD.EDRME ---
Rapid Medical Screening Exam RME Arrival date/time: 06/07/25 08:36 This is a 75-year-old male presents emergency department with complaints of left lower quadrant abdominal pain. Tenesmus and pain with defecation. Recent history of Choley, currently has a urostomy bag. I have greeted and performed a focused initial assessment of this patient. Initial appropriate labs ordered at this time. A comprehensive ED assessment and evaluation of the patient and analysis of all test and completion of medical decision making process will be conducted by additional ED provider. Chief Complaint: Abdominal Pain Time Seen by Provider: 06/07/25 08:46 Vital signs: Vital Signs Temperature 99.1 F 06/07/25 09:03 Pulse Rate 94 06/07/25 09:03 Respiratory Rate 19 06/07/25 09:03 Blood Pressure 148/73 H 06/07/25 09:03 Pulse Oximetry (%) 95 06/07/25 09:03 Oxygen Delivery Method Room Air 06/07/25 09:03
[2025-06-07 10:02] LABS: Collection Type, Urine Clean Catch
[2025-06-07 10:26] LABS: Basophils # (Auto) 0.0 Thou/mm3 (0.0-0.2); Basophils % (Auto) 0 % (0-2.5); Eosinophils # (Auto) 0.2 Thou/mm3 (0.0-0.5); Eosinophils % (Auto) 3 % (0-10); Hematocrit 40.0 % (41.0-53.0); Hemoglobin 13.5 g/dL (13.5-16.0); Immature Granulocytes Auto 0.04 Thou/mm3 (0.00-0.00); Lymphocytes # (Auto) 1.4 Thou/mm3 (1.0-4.8); Lymphocytes % (Auto) 16 % (10-50); Mean Corpuscular HGB Conc 33.8 g/dl (31.0-37.0); Mean Corpuscular Hemoglobin 30.3 pg (25.0-35.0); Mean Corpuscular Volume 90 fL (80-100); Monocytes # (Auto) 0.8 Thou/mm3 (0.0-0.8); Monocytes % (Auto) 9 % (0-12); Neutrophils # (Auto) 6.1 Thou/mm3 (1.8-7.7); Neutrophils % (Auto) 72 % (37-80); Nucleated Red Blood Cell # 0.00 Thou/mm3 (0.00-0.00); Nucleated Red Blood Cell % 0 /100 WBC (0); Platelet Count 206 Thou/mm3 (140-440); RDW Standard Deviation 44.0 fL (35.1-43.9); Red Blood Count 4.45 Miln/mm3 (4.50-5.90); White Blood Count 8.5 Thou/mm3 (3.8-10.6)
[2025-06-07 10:36] LABS: Amorphous Crystals,Urine Present (Absent); Bacteria,Urine Rare; Bilirubin,Urine Negative (Negative); Blood,Urine Negative (Negative); Color,Urine Yellow (Lt Yel-Yel); Glucose, Urine Trace (Negative); Ketones,Urine Negative (Negative); Leukocyte Esterase,Urine Positive (Negative); Nitrite,Urine Positive (Negative); PH,Urine 6.5 (5.0-7.0); Protein,Urine Trace (Neg - Trace); RBC,Urine 3 /hpf (0-3); Specific Gravity,Urine 1.018 (1.001-1.035); Squamous Epithelial Cell,Urine < 1 /hpf (0-5); Urobilinogen,Urine Negative mg/dL (0.0-1.0); WBC,Urine 28 /hpf (0-5)
[2025-06-07 10:37] LABS: Clarity,Urine Hazy (Clear/Hazy)
[2025-06-07 10:49] LABS: INR 1.1 (0.9-1.3); Prothrombin Time 11.5 Seconds (9.0-12.2)
[2025-06-07 11:00] VITALS: BP 139/74; PULSE 70; RESP 19; TEMP 36.9; O2SAT 95
[2025-06-07 11:05] LABS: Alanine Aminotransferase 9 U/L (10-49); Albumin, Serum 4.3 gm/dL (3.4-4.8); Albumin/Globulin Ratio 1.4 (1.2-2.2); Alkaline Phosphatase 99 U/L (46-116); Anion Gap 11 (7-16); Aspartate Amino Transferase 13 U/L (0-34); BUN/Creatinine Ratio 11 Ratio (12-20); Bilirubin,Total 0.6 mg/dL (0.3-1.2); Blood Urea Nitrogen 15 mg/dL (9-23); Calcium 9.3 mg/dL (8.3-10.6); Calcium (Corrected) 9.3 mg/dL (8.5-10.1); Carbon Dioxide 23.2 mMol/L (20.0-31.0); Chloride 106 mMol/L (98-107); Creatinine (Component) 1.4 mg/dL (0.6-1.3); Estimated Creatinine Clearance 37.8 mL/min (>60); Globulin 3.0 gm/dL (2.3-3.5); Glucose 383 mg/dL (74-106); Lipase 29 U/L (12-53); Magnesium 1.4 mg/dL (1.6-2.6); Osmolality,Calculated 296 (275-295); Potassium 3.7 mMol/L (3.4-5.1); Sodium 140 mMol/L (136-145); Total Protein 7.3 gm/dL (5.7-8.2); Troponin I < 0.020 ng/mL (0.0-0.045); eGFR 53 See Note
[2025-06-07 13:21] VITALS: BP 150/72; PULSE 68; RESP 17; TEMP 36.4; O2SAT 97
--- NOTE | 2025-06-07 13:47 | PD.EDABDPN ---
ED Abdominal Pain RME/HPI General Chief Complaint: Abdominal Pain Stated complaint: Left lower abdominal pain X 2 days Time seen by provider: 06/07/25 08:46 Arrival date/time: 06/07/25 08:36 RME / HPI RME / HPI narrative: 75-year-old male patient with significant history of bladder cancer, recent history of open cholecystectomy, urostomy bag, came in for evaluation regarding left lower quadrant pain with tenesmus, for 2 days. Patient denies any fever denies any vomiting denies any diarrhea or constipation. Patient is diabetic also. Related Data Home Medications ?Medication ?Instructions ?Recorded ?Confirmed sitagliptin phosphate 100 mg 100 mg PO QDAY 02/06/24 05/30/25 tablet (Januvia) lisinopril 40 mg tablet 40 mg PO DAILY 02/27/24 05/30/25 amlodipine 5 mg tablet 5 mg PO DAILY 04/25/25 05/30/25 glipizide 2.5 mg tablet, extended 2.5 mg PO DAILY 04/25/25 05/30/25 release 24 hr insulin glargine 100 unit/mL (3 6 unit subcut QPM 04/25/25 05/30/25 mL) subcutaneous pen (Lantus Solostar U-100 Insulin) Previous Rx's ?Medication ?Instructions ?Recorded ciprofloxacin HCl 500 mg tablet 500 mg PO BID #14 tabs 06/07/25 metronidazole 500 mg tablet 500 mg PO BID 7 days #14 tabs 06/07/25 Allergies Allergy/AdvReac Type Severity Reaction Status Date / Time tramadol Allergy Severe Swelling Verified 06/07/25 08:40 of Lip/Tongue/Throat nifedipine Allergy Verified 06/07/25 08:40 Review of Systems Review of Systems Narrative Review of Systems: Review of system reviewed and within normal limits except mentioned in HPI ED Exam Narrative Physical exam: VITAL SIGNS: Reviewed. GENERAL APPEARANCE: Alert and interactive, follows commands, no acute distress, HEAD AND FACE: Non-traumatic. ENT: PERRL, pink conjunctivitis, eyelid no trauma, Mucous membrane moist. NECK: Supple, nontender, no nuchal rigidity. CHEST: No tenderness, no crepitus, no paradoxical movement, no retractions. LUNGS: Clear, well ventilated, symmetric, no rales, no wheezing, no ronchi, no stridor, good breath sounds bilaterally. HEART: Regular rate, regular rhythm, no murmur, no gallops. ABDOMEN: Soft, positive bowel sounds, nondistended, no guarding, tenderness to the left lower quadrant area, no rebound, no masses, positive urostomy working well RECTAL: Deferred. GENITAL: Deferred. NEUROLOGICAL: Gross motor function intact sensory function intact, Appropriate for age. MUSCULOSKELETAL: low back nontender, full range of motion. EXTREMITIES: Nontender, full range of motion. SKIN: Color pink, dry, no rash, no lacerations, no abrasions, no contusions. LYMPHATICS: Deferred. Course Quality Measures none Orders Category Date Time Status CT Screening NOW Care 06/07/25 09:13 Active EKG (ED ONLY) *Do not use* NOW Care 06/07/25 09:12 Completed NPO STAT Care 06/07/25 09:[address] abdomen pelvis w con Stat Exams 06/07/25 09:12 Completed EKG (ED Only) Stat Exams 06/07/25 09:12 Draft CBC Stat Lab 06/07/25 09:55 Completed Comprehensive Metabolic Panel Stat Lab 06/07/25 09:55 Completed Lipase Stat Lab 06/07/25 09:55 Completed Magnesium Stat Lab 06/07/25 09:55 Completed Prothrombin Time with INR Stat Lab 06/07/25 09:55 Completed Troponin I Stat Lab 06/07/25 09:55 Completed Urinalysis Stat Lab 06/07/25 09:45 Completed CIPROFLOXACIN/D5w 400 MG IVPB [Cipro Ivpb] Med 06/07/25 15:40 Active 400 mg in 200 ml IV X1 Magnesium Sulfate 1 gm Ivpb [Magnesium Sulfate Ivpb] Med 06/07/25 13:43 Discontinued 1 gm in 100 ml IV X1 Ringers Lactated 1000 ml [Lactated Ringers] 1,000 ml Med 06/07/25 13:46 Discontinued IV 999 mls/hr cefTRIAXone/D5w 1gm IV premix [Rocephin/D5w 1gm IV Med 06/07/25 13:43 Discontinued premix] 1 gm in 50 ml IV X1 metroNIDAZOLE/NS 500 MG IVPB [Flagyl 500 mg IV] Med 06/07/25 15:40 Active 500 mg in 100 ml IV X1 Vital Signs Vital signs: Vital Signs Temperature 99.1 F 06/07/25 09:03 Pulse Rate 94 06/07/25 09:03 Respiratory Rate 19 06/07/25 09:03 Blood Pressure 148/73 H 06/07/25 09:03 Pulse Oximetry (%) 95 06/07/25 09:03 Oxygen Delivery Method Room Air 06/07/25 09:03 Abdominal Pain [facility] Narrative [facility] Narrative:: 75-year-old male patient with significant history of bladder cancer, recent history of open cholecystectomy, urostomy bag, came in for evaluation regarding left lower quadrant pain with tenesmus, for 2 days. Patient denies any fever denies any vomiting denies any diarrhea or constipation. Patient is diabetic also. EKG shows sinus rhythm, ventricular rate of 95 beats per minute, no ST segment elevation or depression noted. Laboratory workup came back unremarkable no leukocytosis noted. Urinalysis positive for UTI CT scan of the abdomen and pelvis showed Abscess in the gallbladder fossa, amenable to CT-guided percutaneous catheter drainage Acute diverticulitis No pelvic abscess I discussed this case with Dr. Haro who did open cholecystectomy more than a month ago, told me that a incidental finding of possible abscess in the gallbladder fossa is not worrisome, patient is not having tenderness and patient is not having leukocytosis. Patient can be follow-up in the clinic. Patient was given antibiotic for diverticulitis. Patient appears nontoxic and hemodynamically stable .Decision to discharge the patient. The patient/family was given an opportunity to ask questions and understood their discharge instructions. Discharge instructions specifically included follow up provider and time frame, current and/or new medications and possible side effects, indications for sooner follow up or return to the emergency department, and the expected course of current diagnosis. Patient reports feeling better as well and giving evidence of significant clinical improvement, I believe patient is now a candidate for discharge. Patient data External records reviewed:: None Clinical information provided by:: patient Social determinants that could affect healthcare access:: none Patient has the following chronic illnesses:: History of bladder cancer, How is presenting disease/condition affected by chronic disease/condition?: exacerbated by Evaluation data The following diagnostics were reviewed and interpreted by me:: lab results, radiology exam(s) and EKG tracing(s) Lab and/or radiology exams considered but not ordered:: None Interpretation Summary: See results MDM Medications / Prescriptions Medications or Prescriptions considered but not ordered:: None Medication administrations:: Medication Administration History Metronidazole (Flagyl 500 Mg Iv) 500 mg in 100 mls @ 100 mls/hr IV X1 ONE Stop: 06/07/25 16:39 Ciprofloxacin/Dextrose (Cipro Ivpb) 400 mg in 200 mls @ 200 mls/hr IV X1 ONE Stop: 06/07/25 16:39 Discontinued Medications Ceftriaxone Sodium/Dextrose (Rocephin/D5w 1gm Iv Premix) 1 gm in 50 mls @ 100 mls/hr IV X1 ONE Stop: 06/07/25 14:12 Last Infusion: 06/07/25 14:42 Dose: Infused Documented By: Admin: 06/07/25 14:11 Dose: 100 mls/hr Documented By: MAXIM Magnesium Sulfate/Dextrose (Magnesium Sulfate Ivpb) 1 gm in 100 mls @ 100 mls/hr IV X1 ONE Stop: 06/07/25 14:42 Last Infusion: 06/07/25 15:16 Dose: Infused Documented By: Admin: 06/07/25 14:11 Dose: 100 mls/hr Documented By: MAXIM Lactated Ringer's (Lactated Ringers) 1,000 mls @ 999 mls/hr IV .Q1H1M ONE Stop: 06/07/25 14:46 Last Infusion: 06/07/25 15:17 Dose: Infused Documented By: Admin: 06/07/25 14:11 Dose: 999 mls/hr Documented By: MAXIM IV fluids, magnesium, ceftriaxone, Flagyl and Cipro Consultations Consultation(s) initiated? (list below): Yes Consultation #1 (Physician, Specialty, Details): Dr Samano, patient's surgeon thank you Diagnosis Differential diagnosis abdominal pain: abdominal pain, constipation and diverticulitis Most likely diagnosis given after review of the tests above:: Diverticulitis Admission Indicated Admission indicated?: not indicated Admission Request Was there a request for admission?: No Disposition Plan Disposition Plan: Discharge Discharge Attestation Discharge Attestation: The patient and all family members were given an opportunity to ask questions and understood the discharge instructions. Discharge instructions specifically effects, indications for sooner follow up or return to the emergency department, and the expected course of current diagnosis. Patient condition: Stable Discharge Plan Plan Patient Disposition: HOME (Self Care) Discharge Disposition comment: Stable Prescriptions/Referrals Prescriptions/Med Rec: New metronidazole 500 mg tablet 500 mg PO BID 7 Days Qty: 14 0RF ciprofloxacin HCl 500 mg tablet 500 mg PO BID Qty: 14 0RF No Action Januvia 100 mg tablet 100 mg PO QDAY lisinopril 40 mg tablet 40 mg PO DAILY Patient Comments: TOME LUIGI TABLETA TODOS LOS D FOR 90 DAYS amlodipine 5 mg tablet 5 mg PO DAILY Patient Comments: TOME 1 TABLETA POR V A ORAL TODOS LOS D FOR 90 DAYS glipizide 2.5 mg tablet extended release 24hr 2.5 mg PO DAILY Patient Comments: TOME 1 TABLETA POR V A ORAL TODOS LOS D insulin glargine [Lantus Solostar U-100 Insulin] 100 unit/mL (3 mL) insulin pen 6 unit subcut QPM Referrals: Edmond Harris MD [Primary Care Provider] - In 1 week Problem List Clinical Impression: Diverticulitis Patient/Caregiver Discharge Instructions Discharge Activity: activity as tolerated Education Materials: ED Diverticulitis Additional Instructions: Thank you for the opportunity for serving you today. You are stable for discharged . You are advised to: Follow-up with your PCP in 1 to 2 days and asked for referral to general surgeon regarding possible incidental finding of gallbladder fossa fluid collection rule out abscess Return to ED for worsening of symptoms Increase oral fluids Take medication as prescribed Liquid diet for 2 days advance as tolerated Print Language: Maldivian Stand Alone Forms: Shelli Award Info., Patient Portal Info Letter JENNIFER/KYLAH Supervising Physician JENNIFER/KYLAH Supervising Physician: MD Ze
[2025-06-07] MEDS: RINGERS LACTATED 1000 ML 1,000 ML 999 ML IV (14:11)
[2025-06-07] MEDS: cefTRIAXone/D5w 1gm IV premix 1 GM/50 ML BAG IV (14:11)
[2025-06-07 15:21] VITALS: BP 127/69; PULSE 63; RESP 18; TEMP 36.8; O2SAT 97
[2025-06-07] MEDS: CIPROFLOXACIN/D5w 400 MG IVPB 400 MG/200 ML BAG 200 MG IV (16:21)
[2025-06-07] MEDS: metroNIDAZOLE/NS 500 MG IVPB 500 MG/100 ML BAG 100 MG IV (16:21)
[2025-06-07 16:39] VITALS: BP 145/77; PULSE 66; RESP 16; TEMP 36.8; O2SAT 96
[2025-06-07 17:47] VITALS: BP 125/72; PULSE 71; RESP 16; TEMP 37.1; O2SAT 94
== END 2025-06-07 17:45 | disposition home or self-care (01) ==
PROVIDERS: Nurse Practitioner Primary Care; Emergency Provider Family Medicine; PCP Family Medicine
DX: K57.32 Diverticulitis of large intestine without perforation or abscess without bleeding (principal); R94.31 Abnormal electrocardiogram [ECG] [EKG]
CPT/HCPCS: 36415; 74177; 80053; 81001; 83690; 83735; 84484; 85025; 85610; 93005; 96365; 96366; 99284; A4649; J0696; J0744; J3475; J3490; J7120; Q9967; J1836

== ENCOUNTER → 2025-06-20 | Outpatient (CLI) | payer OTHER, SELFPAY ==
--- NOTE | 2025-06-20 13:00 | XR_ITS ---
Examination: Nuclear medicine kidney imaging flow and function multiple studies Date and time: June 20, 2025 1342 hours INDICATIONS: Bladder cancer diagnosis epigastric and flank pain this week TECHNIQUE AND FINDINGS: Intravenous administration 10.3 mCi MAG3 20 mg Lasix given 20 minutes post procedure Fluoroscopy and function curves generated to 60 minutes Adequate function both kidneys Lasix has no significant mass effect upon the excretion Flow to the right kidney 80% of flow to the left kidney IMPRESSION: Adequate bilateral renal function
[2025-06-20 14:25] VITALS: BP 142/72; PULSE 64; RESP 12; O2SAT 94
[2025-06-20 14:28] VITALS: BP 142/72; PULSE 64
[2025-06-20] MEDS: FUROSEMIDE INJ 10 MG/ML 4ML VIAL 40 MG IVP (14:28)
[2025-06-20 14:30] VITALS: BP 128/68; PULSE 66; RESP 12; O2SAT 93
== END | disposition home or self-care (01) ==
PROVIDERS: PCP Family Medicine; Referring Provider Urology; Visit Provider Urology
DX: N13.30 Unspecified hydronephrosis (principal)
CPT/HCPCS: 78709; A9562; J1938

== ENCOUNTER → 2025-07-24 | Outpatient (CLI) | payer OTHER, MEDICAID, SELFPAY ==
[2025-07-24 09:55] LABS: Basophils # (Auto) 0.0 Thou/mm3 (0.0-0.2); Basophils % (Auto) 0 % (0-2.5); Eosinophils # (Auto) 0.3 Thou/mm3 (0.0-0.5); Eosinophils % (Auto) 4 % (0-10); Hematocrit 45.3 % (41.0-53.0); Hemoglobin 15.3 g/dL (13.5-16.0); Immature Granulocytes Auto 0.03 Thou/mm3 (0.00-0.00); Lymphocytes # (Auto) 2.0 Thou/mm3 (1.0-4.8); Lymphocytes % (Auto) 29 % (10-50); Mean Corpuscular HGB Conc 33.8 g/dl (31.0-37.0); Mean Corpuscular Hemoglobin 29.8 pg (25.0-35.0); Mean Corpuscular Volume 88 fL (80-100); Monocytes # (Auto) 0.6 Thou/mm3 (0.0-0.8); Monocytes % (Auto) 9 % (0-12); Neutrophils # (Auto) 4.0 Thou/mm3 (1.8-7.7); Neutrophils % (Auto) 58 % (37-80); Nucleated Red Blood Cell # 0.00 Thou/mm3 (0.00-0.00); Nucleated Red Blood Cell % 0 /100 WBC (0); Platelet Count 280 Thou/mm3 (140-440); RDW Standard Deviation 42.3 fL (35.1-43.9); Red Blood Count 5.14 Miln/mm3 (4.50-5.90); White Blood Count 7.0 Thou/mm3 (3.8-10.6)
[2025-07-24 09:57] LABS: Glucose Estimated Average 166 mg/dL (80-131); Hemoglobin A1C 7.4 % Hgb (4.8-6.0)
[2025-07-24 10:23] LABS: Alanine Aminotransferase 13 U/L (10-49); Albumin, Serum 4.5 gm/dL (3.4-4.8); Albumin/Globulin Ratio 1.7 (1.2-2.2); Alkaline Phosphatase 90 U/L (46-116); Anion Gap 13 (7-16); Aspartate Amino Transferase 15 U/L (0-34); BUN/Creatinine Ratio 15 Ratio (12-20); Bilirubin,Total 0.4 mg/dL (0.3-1.2); Blood Urea Nitrogen 19 mg/dL (9-23); Calcium 10.5 mg/dL (8.3-10.6); Calcium (Corrected) 10.5 mg/dL (8.5-10.1); Carbon Dioxide 24.1 mMol/L (20.0-31.0); Chloride 108 mMol/L (98-107); Creatinine (Component) 1.3 mg/dL (0.6-1.3); Globulin 2.7 gm/dL (2.3-3.5); Glucose 123 mg/dL (74-106); Osmolality,Calculated 291 (275-295); Potassium 4.2 mMol/L (3.4-5.1); Sodium 145 mMol/L (136-145); Total Protein 7.2 gm/dL (5.7-8.2); eGFR 58 See Note
== END | disposition home or self-care (01) ==
LOC: COPL 08:07
PROVIDERS: PCP Family Medicine; Referring Provider Student in an Organized Health Care Education/Training Program; Visit Provider Student in an Organized Health Care Education/Training Program
DX: I10 Essential (primary) hypertension (principal); E11.9 Type 2 diabetes mellitus without complications
CPT/HCPCS: 36415; 80053; 83036; 85025

== ENCOUNTER → 2025-09-23 | Outpatient (CLI) | payer OTHER, MEDICAID, SELFPAY ==
--- NOTE | 2025-09-23 13:42 | XR_ITS ---
MRI shoulder, right, without contrast. Date and time: September 23, 20252013 hours INDICATIONS: Patient fell 2 years ago with injury to the shoulder, decreased range of motion shoulder pain Technique: Multiple axial, sagittal and coronal sections of the shoulder have been obtained. Siemens high-resolution 1.5 April MRI scanner is utilized. Axial fat-suppressed sections, TR 2350, TE 18 T2-weighted coronal fat-saturated images, TR 3500, TE 7100 T1-weighted coronal images, TR 500, TE 15 T2-weighted sagittal fat-saturated images, TR 3500, TE 57 T1-weighted sagittal sections, TR 504, TE 13. Findings: Supraspinatus tendon insertion is abnormal, 10 mm partial-thickness articular surface tear. Infraspinatus tendon insertion is intact. Subscapularis insertion is intact. Subscapularis bursa is not seen. Long head of the biceps is in the bicipital groove. No definite tear of the biceps superior labral anchor is seen. Retraction of the musculotendinous junction of the rotator cuff is mild. Tendinosis pattern is moderate. Distance between the acromium and humeral head is 6.5 mm Atrophy of the supraspinatus muscle is moderate. Atrophy of the infraspinatus muscle is mild. Sagittal sections demonstrate a horizontal acromion. Acromioclavicular joint demonstrates mild osteoarthritis . Osacromiale is not identified. Labral margins intact. Bony glenoid fossa on the sagittal sections does not demonstrate osseous defect. Occult fracture or area of avascular necrosis is not seen. Acromioclavicular joint separation is not visible. Defect in the posterolateral margin of the humeral head is not seen Impression: 10 mm partial-thickness tear supraspinatus
== END | disposition home or self-care (01) ==
PROVIDERS: PCP Family Medicine; Referring Provider Orthopaedic Surgery; Visit Provider Orthopaedic Surgery
DX: S46.011A Strain of muscle(s) and tendon(s) of the rotator cuff of right shoulder, initial encounter (principal); W19.XXXA Unspecified fall, initial encounter
CPT/HCPCS: 73221

== ENCOUNTER → 2025-09-24 | Outpatient (CLI) | payer OTHER, MEDICAID, SELFPAY ==
[2025-09-24 09:23] LABS: Basophils # (Auto) 0.0 Thou/mm3 (0.0-0.2); Basophils % (Auto) 1 % (0-2.5); Eosinophils # (Auto) 0.3 Thou/mm3 (0.0-0.5); Eosinophils % (Auto) 4 % (0-10); Hematocrit 43.5 % (41.0-53.0); Hemoglobin 14.5 g/dL (13.5-16.0); Immature Granulocytes Auto 0.06 Thou/mm3 (0.00-0.00); Lymphocytes # (Auto) 1.9 Thou/mm3 (1.0-4.8); Lymphocytes % (Auto) 28 % (10-50); Mean Corpuscular HGB Conc 33.3 g/dl (31.0-37.0); Mean Corpuscular Hemoglobin 29.1 pg (25.0-35.0); Mean Corpuscular Volume 87 fL (80-100); Monocytes # (Auto) 0.5 Thou/mm3 (0.0-0.8); Monocytes % (Auto) 8 % (0-12); Neutrophils # (Auto) 3.9 Thou/mm3 (1.8-7.7); Neutrophils % (Auto) 59 % (37-80); Nucleated Red Blood Cell # 0.00 Thou/mm3 (0.00-0.00); Nucleated Red Blood Cell % 0 /100 WBC (0); Platelet Count 293 Thou/mm3 (140-440); RDW Standard Deviation 42.3 fL (35.1-43.9); Red Blood Count 4.98 Miln/mm3 (4.50-5.90); White Blood Count 6.6 Thou/mm3 (3.8-10.6)
[2025-09-24 09:28] LABS: INR 1.0 (0.9-1.3); Partial Thromboplastin Time 28.8 Seconds (22.0-36.0); Prothrombin Time 10.9 Seconds (9.0-12.2)
[2025-09-24 09:30] LABS: Glucose Estimated Average 174 mg/dL (80-131); Hemoglobin A1C 7.7 % Hgb (4.8-6.0)
[2025-09-24 09:35] LABS: Alanine Aminotransferase 18 U/L (10-49); Albumin, Serum 4.9 gm/dL (3.4-4.8); Albumin/Globulin Ratio 1.8 (1.2-2.2); Alkaline Phosphatase 110 U/L (46-116); Anion Gap 11 (7-16); Aspartate Amino Transferase 19 U/L (0-34); BUN/Creatinine Ratio 15 Ratio (12-20); Bilirubin,Total 0.4 mg/dL (0.3-1.2); Blood Urea Nitrogen 16 mg/dL (9-23); Calcium 10.3 mg/dL (8.3-10.6); Calcium (Corrected) 10.3 mg/dL (8.5-10.1); Carbon Dioxide 22.0 mMol/L (20.0-31.0); Chloride 110 mMol/L (98-107); Creatinine (Component) 1.1 mg/dL (0.6-1.3); Globulin 2.8 gm/dL (2.3-3.5); Glucose 121 mg/dL (74-106); Osmolality,Calculated 287 (275-295); Potassium 4.6 mMol/L (3.4-5.1); Sodium 143 mMol/L (136-145); Total Protein 7.7 gm/dL (5.7-8.2); eGFR > 60 See Note
[2025-09-24 09:44] LABS: Collection Type, Urine Catheter; RBC,Urine 0 /hpf (0-3)
[2025-09-24 10:20] LABS: Bilirubin,Urine Negative (Negative); Blood,Urine Negative (Negative); Clarity,Urine Clear (Clear/Hazy); Color,Urine Lt-Yellow (Lt Yel-Yel); Glucose, Urine Negative (Negative); Ketones,Urine Negative (Negative); Leukocyte Esterase,Urine Positive (Negative); Nitrite,Urine Negative (Negative); PH,Urine 6.0 (5.0-7.0); Protein,Urine Negative (Neg - Trace); Specific Gravity,Urine 1.012 (1.001-1.035); Squamous Epithelial Cell,Urine 1 /hpf (0-5); Urobilinogen,Urine Negative mg/dL (0.0-1.0); WBC,Urine 14 /hpf (0-5)
== END | disposition home or self-care (01) ==
LOC: COPL 08:15
PROVIDERS: PCP Student in an Organized Health Care Education/Training Program; Referring Provider Student in an Organized Health Care Education/Training Program; Visit Provider Student in an Organized Health Care Education/Training Program
DX: Z01.818 Encounter for other preprocedural examination (principal); I10 Essential (primary) hypertension
CPT/HCPCS: 36415; 80053; 81001; 83036; 85025; 85610; 85730; 87077; 87086; 87186

== ENCOUNTER → 2025-09-25 | Outpatient (CLI) | payer OTHER, MEDICAID, SELFPAY ==
--- NOTE | 2025-09-25 10:00 | XR_ITS ---
Examination: CT abdomen with intravenous contrast CT pelvis with intravenous contrast 2-D coronal reconstructions 2-D sagittal reconstructions Date and time of exam: September 25, 2025, 10:00 a.m INDICATIONS: History bladder cancer, onset left-sided abdominal pain beginning 1 week ago COMPARISON: June 07, 2025. CTDI: vol (mGy) 12.1 DLP: (mGycm) 754 Technique: Multiple axial sections of the abdomen and pelvis have been obtained. 64 slice high-resolution scanner used. 3 mm axial sections have been obtained, post intravenous injection 60 cc Isovue-370 2-D sagittal, coronal reconstructions obtained. Low dose protocols were performed. One or more of the following dose reduction techniques were used; automated exposure control, adjustment of the mA and/or KV according to patient size, use of iterative reconstruction technique. Findings: Mild enlargement left atrium left ventricle No visualized liver or splenic lesion Mild fluid in the gallbladder fossa with surgical clips in the gallbladder fossa No pancreatic or adrenal mass Moderate renal scar formation Wall thickening involving the renal calyces and ureters with diverting urostomy, no ureteral calculi Colonic diverticulosis Normal appendix, no diverticulitis Absent urinary bladder Advanced degenerative disc disease L5-S1 IMPRESSION: Mild fluid in the gallbladder fossa, clinical correlation advised. Moderate renal scar formation Mild wall thickening involving the renal calyces and ureters seen with urinary tract infection Diverting urostomy No bladder Normal appendix No pathologic abdominal or pelvic lymphadenopathy
== END | disposition home or self-care (01) ==
LOC: SCAT 09:25
PROVIDERS: PCP Family Medicine; Referring Provider Urology; Visit Provider Urology
DX: N28.89 Other specified disorders of kidney and ureter (principal); N39.0 Urinary tract infection, site not specified; C67.9 Malignant neoplasm of bladder, unspecified
CPT/HCPCS: 74177; A4649; Q9967

== ENCOUNTER → 2025-10-06 | Outpatient (BNVA) | payer OTHER, MEDICAID, SELFPAY | END | disposition home or self-care (01) | PROVIDERS: PCP Family Medicine; Referring Provider Family Medicine; Visit Provider Urology | DX: C67.9 Malignant neoplasm of bladder, unspecified (principal); E11.9 Type 2 diabetes mellitus without complications; I25.10 Atherosclerotic heart disease of native coronary artery without angina pectoris; Z80.42 Family history of malignant neoplasm of prostate; I10 Essential (primary) hypertension | CPT/HCPCS: 99212; 99213; G0463 ==